=== PATIENT | female | born 1935 | race Caucasian/White ===

== ENCOUNTER 2016-11-13 14:01 | Inpatient (IN) | payer MEDICARE ==
--- NOTE | 2016-11-13 14:13 | Emergency Department Record ---
History of Present Illness - General Chief Complaint: Shortness of breath Stated Complaint: ELEVATED BP Time Seen by Provider: 11/13/16 14:12 Source: Patient, Family Mode of Arrival: Ambulatory Limitations: No limitations - History of Present Illness Initial Comments: The patient has had a cough and mild congestion for a few days and it has gotten worse today. Now she is having labored breathing and SOB with walking. The patient denies any CP, sputum production, fever, chills, or pleuritic pain. She did see her PCP today but was referred to the ER for further evaluation. MD Complaint: Cough, Shortness of breath Onset/Timin -: Days(s) Consistency: Constant Improves With: Nothing Worsens With: Exertion Known History Of: Other Associated Symptoms: Cough Treatments Prior to Arrival: None - Related Data Allergies Allergy/AdvReac Type Severity Reaction Status Date / Time lisinopril Allergy Unknown CONGESTION Unverified 04/17/16 14:00 Travel Screening - Travel/Exposure Within Last 30 Days Have you traveled within the last 30 days?: No Review of Systems Constitutional: Reports: Malaise. Denies: Chills, Fever Eyes: Denies: Eye discharge ENT: Reports: Congestion Respiratory: Reports: Cough, Dyspnea Cardiovascular: Denies: Chest pain Endocrine: Reports: Fatigue Gastrointestinal: Denies: Diarrhea, Vomiting Genitourinary: Denies: Dysuria Musculoskeletal: Denies: Back pain Skin: Denies: Bruising Past Medical History - SOCIAL HISTORY Smoking Status: Former smoker - RESPIRATORY Hx Respiratory Disorders: Yes Hx COPD: Yes Hx Pneumonia: Yes Hx Sleep Apnea: Yes Hx of CPAP: No - CARDIOVASCULAR Hx Cardio Disorders: Yes Hx Hypertension: Yes Comment:: hypercholesteremia, AAA - NEURO Hx Neuro Disorders: No - GI Hx GI Disorders: Yes Comment:: abdominal aneurysm - Hx Genitourinary Disorders: Yes Hx Bladder Problem: Yes (cancer) - ENDOCRINE Hx Endocrine Disorders: No Hx Diabetes: No Hx Thyroid Disease: No - MUSCULOSKELETAL Hx Musculoskeletal Disorders: Yes Hx Arthritis: Yes - PSYCH Hx Psych Problems: No - HEMATOLOGY/ONCOLOGY Hx Hematology/Oncology Disorders: Yes Hx Cancer: Yes (bladder 2009 approx) Hx Blood Transfusions: Yes Hx Blood Transfusion Reaction: No Family Medical History Any Significant Family History?: Yes Hx Cancer: Mother, Children, Brother/Sister Hx Resp Disorders: Children Physical Exam - General General Appearance: Alert, Oriented x3, Cooperative, No acute distress - Head Head exam: Atraumatic, Normocephalic, Normal inspection - Eye Eye exam: Normal appearance, PERRL - ENT Throat exam: Normal inspection. negative: Tonsillar erythema, Tonsillar exudate - Neck Neck exam: Normal inspection, Full ROM. negative: Tenderness - Respiratory Respiratory exam: Decreased breath sounds, Wheezes (at the bases.). negative: Normal lung sounds bilaterally - Cardiovascular Cardiovascular Exam: Regular rate, Normal rhythm, Normal heart sounds - GI/Abdominal GI/Abdominal exam: Soft, Normal bowel sounds. negative: Tenderness - Extremities Extremities exam: Normal inspection, Full ROM, Normal capillary refill. negative: Tenderness - Neurological Neurological exam: Alert, Normal gait. negative: Abnormal gait, Motor sensory deficit Course Vital Signs 11/13/16 14:03 Temperature 97.6 F Pulse Rate 74 Respiratory 20 Rate Blood Pressure 189/102 Pulse Ox 88 L - Reevaluation(s) Reevaluation #1: The patient is doing and feeling better. On exam her wheezing has improved but is still present. When her O2 is turned off her RA biox drops to 86%. On exam the lung aeration is much improved but she is still having the wheezing minimally but no labored breathing. I did discuss the case with Dr. Salcedo and did recommend hospital admission and she does accept the admission. 11/13/16 15:59 Medical Decision Making - Data Complexity MDM Data: Labs Ordered and/or Reviewed, X-Ray Ordered and/or Reviewed, EKG Ordered and/or Reviewed - Lab Data Result diagrams: 11/13/16 13:40 11/13/16 13:40 - EKG Data -: EKG Interpreted by Me EKG: No Acute Changes - Radiology Data Radiology results: Report reviewed (CXR: COPD, O/W no acute changes.) Disposition Disposition: Admit Clinical Impression: COPD exacerbation Disposition: Still a Patient at [facility] Decision to Admit: Admit from ER Decision to Admit Date: 11/13/16 Decision to Admit Time: 16:01 Accepting Physician: Denisse Time Discussed w/Accepting Physician: 16:01 Condition: (2) Stable Forms: Patient Portal Access Time of Disposition: 16:01
[2016-11-13] MEDS ORDERED: ALBUTEROL SULFATE (0.083%) 2.5 MG/3 ML NEB INH ONE (14:17)
[2016-11-13] MEDS ORDERED: IPRATROPIUM/ALBUTEROL (0.5MG/3MG) NEB INH ONE (14:17)
[2016-11-13] MEDS ORDERED: METHYLPREDNISOLONE PF 125MG/VIAL IVP ONE (14:17)
[2016-11-13 14:27] LABS: HEMATOCRIT 37.3 % (35.0-47.0); HEMOGLOBIN 12.8 gm/dl (11.6-16.0); MEAN CELL VOLUME 85.6 fl (81-97); MEAN CORPUSCULAR HEMOGLOBIN 29.4 pg (27-33); MEAN CORPUSCULAR HGB CONC 34.3 g/dl (32-36); MEAN PLATELET VOLUME 11.2 fl (7.4-10.4); PLATELET COUNT 152 K/uL (130-400); RED BLOOD COUNT 4.36 M/uL (3.80-5.40); RED CELL DISTRIBUTION WIDTH 14.7 % (11.5-14.5); WHITE BLOOD COUNT W/O DIFF 6.5 K/uL (4.2-12.2)
[2016-11-13 14:39] LABS: BLOOD UREA NITROGEN 12 mg/dL (7-17); CREATININE 0.9 mg/dL (0.52-1.04); EST GLOMERULAR FILTRATION RATE > 60 ml/min; GLUCOSE,RANDOM 100 mg/dL (70-110)
[2016-11-13 14:41] LABS: PLATELET ESTIMATE NORMAL (NORMAL)
[2016-11-13 14:51] LABS: TROPONIN I < 0.012 ng/mL (0.00-0.034)
[2016-11-13] MEDS ORDERED: LEVOFLOXACIN 500 MG TABLET PO ONE (15:58)
[2016-11-13] MEDS ORDERED: ACETAMINOPHEN 500 MG TABLET PO PRN (17:28)
[2016-11-13] MEDS: IPRATROPIUM/ALBUTEROL (0.5MG/3MG) NEB INH SCH ×2 (18:16→22:07)
[2016-11-13] MEDS: ASPIRIN 81 MG CHEWABLE TABLET PO SCH (18:42)
[2016-11-13] MEDS ORDERED: CALCIUM CARBONATE 500 MG TAB.CHEW PO PRN (23:00)
[2016-11-14] MEDS ORDERED: LEVOFLOXACIN 500 MG TABLET PO SCH (06:00)
[2016-11-14] MEDS: IPRATROPIUM/ALBUTEROL (0.5MG/3MG) NEB INH SCH ×5 (06:19→18:19)
[2016-11-14 06:22] LABS: GRAN % 78.1 % (47-80); HEMATOCRIT 34.7 % (35.0-47.0); LYMPH % 18.8 % (16-45); MEAN CELL VOLUME 84.8 fl (81-97); MEAN CORPUSCULAR HEMOGLOBIN 29.3 pg (27-33); MEAN CORPUSCULAR HGB CONC 34.6 g/dl (32-36); MEAN PLATELET VOLUME 11.5 fl (7.4-10.4); MONO % 3.1 % (0-9); PLATELET COUNT 132 K/uL (130-400); RED BLOOD COUNT 4.09 M/uL (3.80-5.40); RED CELL DISTRIBUTION WIDTH 14.3 % (11.5-14.5); WHITE BLOOD COUNT W/O DIFF 4.9 K/uL (4.2-12.2)
[2016-11-14 06:35] LABS: ALB/GLOB RATIO 1.3 (1.1-1.8); ALKALINE PHOSPHATASE 69 U/L (38-126); ALT/SGPT 18 U/L (9-52); AST/SGOT 19 U/L (14-36); BILIRUBIN,TOTAL 0.52 mg/dL (0.2-1.3); BLOOD UREA NITROGEN 17 mg/dL (7-17); CREATININE 0.9 mg/dL (0.52-1.04); EST GLOMERULAR FILTRATION RATE > 60 ml/min; GLUCOSE,RANDOM 125 mg/dL (70-110)
--- NOTE | 2016-11-14 09:13 | RADIOLOGY REPORT ---
EXAM: CHEST, TWO VIEWS HISTORY: PROGRESSIVE DIFFICULTY BREATHING, NONPRODUCTIVE COUGH AT NIGHT. TECHNIQUE: Two views of the chest were obtained. Comparison: Chest x-ray 04/07/16, chest CT 07/04/15. FINDINGS: Mild biapical pleural thickening as well as scattered ill defined nodular densities unchanged from the chest CT of 07/04/15. No dense infiltrate. The cardiomediastinal silhouette is not enlarged. The diaphragm is unremarkable. Osteopenia. IMPRESSION: HYPERINFLATED LUNGS. BIAPICAL SCARRING WITH SCATTERED SUBTLE NODULAR DENSITIES THROUGHOUT THE APICES UNCHANGED FROM 2015 LIKELY POST INFLAMMATORY. NO ACUTE INTRATHORACIC PROCESS. JOB NUMBER: [id number] MTDD
[2016-11-14] MEDS ORDERED: METHYLPREDNISOLONE PF 125MG/VIAL IVP SCH (10:00)
[2016-11-14] MEDS ORDERED: ATENOLOL 50 MG TABLET PO SCH (10:00)
[2016-11-14] MEDS ORDERED: SIMVASTATIN 10MG TABLET PO SCH (10:00)
--- NOTE | 2016-11-14 13:58 | History & Physical ---
History of Present Illness - Date of Service Date of Service for History & Physical: 11/14/16 - History of Present Illness Admitting Diagnosis: 1. Acute COPD Exacerbation. History of Present Illness: 81 yo F with past medical history of COPD presents with acute shortness of breath and difficulty in breathing. The patient has had a cough and mild congestion for a few days and it has gotten worse today. Now she is having labored breathing and SOB with walking. The patient denies any CP, sputum production, fever, chills, or pleuritic pain. She had come into the clinic to see her PCP today (myself) but was referred to the ER for further evaluation when resting biox was found to be in low 80s. She was admitted subsequently when her ambulatory biox was found to be in the low 80s. Travel Screening - Travel/Exposure Within Last 30 Days Have you traveled within the last 30 days?: No - Travel/Exposure Within Last Year Have you traveled outside the [place] in the last year?: No - Additonal Travel Details Have you been exposed to anyone with a communicable illness?: No Review of Systems Constitutional: Reports: Malaise. Denies: Chills, Fever Eyes: Denies: Eye discharge ENT: Reports: Congestion Respiratory: Reports: Cough, Dyspnea Cardiovascular: Denies: Chest pain Endocrine: Reports: Fatigue Gastrointestinal: Denies: Diarrhea, Vomiting Genitourinary: Denies: Dysuria Musculoskeletal: Denies: Back pain Skin: Denies: Bruising Past Medical History - SOCIAL HISTORY Smoking Status: Former smoker Alcohol Use: None Drug Use: None - RESPIRATORY Hx Respiratory Disorders: Yes Hx COPD: Yes Hx Pneumonia: Yes Hx Sleep Apnea: Yes Hx of CPAP: No - CARDIOVASCULAR Hx Cardio Disorders: Yes Hx Hypertension: Yes Comment:: hypercholesteremia, AAA - NEURO Hx Neuro Disorders: No Comment:: "memory issues" per daughter - GI Hx GI Disorders: Yes Hx Reflux: Yes Comment:: abdominal aneurysm - Hx Genitourinary Disorders: Yes Hx Bladder Problem: Yes (cancer) - ENDOCRINE Hx Endocrine Disorders: No Hx Diabetes: No Hx Thyroid Disease: No - MUSCULOSKELETAL Hx Musculoskeletal Disorders: Yes Hx Arthritis: Yes - PSYCH Hx Psych Problems: No - HEMATOLOGY/ONCOLOGY Hx Hematology/Oncology Disorders: Yes Hx Cancer: Yes (bladder 2009 approx) Hx Blood Transfusions: Yes Hx Blood Transfusion Reaction: No Family Medical History Any Significant Family History?: Yes Hx Cancer: Mother, Children, Brother/Sister Hx Resp Disorders: Children H&P Meds/Allergies - Allergies Allergies: Allergies Allergy/AdvReac Type Severity Reaction Status Date / Time lisinopril Allergy Unknown CONGESTION Unverified 04/17/16 14:00 - Active Medications Active Medications: Current Medications Acetaminophen (Tylenol 500mg Tab) 500 mg PO Q6H PRN PRN Reason: PAIN/TEMP Albuterol/Ipratropium (Duoneb) 3 ml INH RESP.Q4H.WA [facility] Last Admin: 11/14/16 13:30 Dose: 3 ml Aspirin (Aspirin Chewable) 81 mg PO QD [facility] Last Admin: 11/13/16 18:42 Dose: 81 mg Atenolol (Tenormin) 50 mg PO QAM [facility] Last Admin: 11/14/16 11:01 Dose: 50 mg Calcium Carbonate/Glycine (Tums) 500 mg PO Q4H PRN PRN Reason: INDIGESTION Levofloxacin (Levaquin Tab) 500 mg PO DAILYFLUOR [facility] Last Admin: 11/14/16 07:57 Dose: 500 mg Methylprednisolone Sodium Succinate (Solu-Medrol) 60 mg IVP DAILY [facility] Last Admin: 11/14/16 11:01 Dose: 60 mg Simvastatin (Zocor) 10 mg PO DAILY [facility] Last Admin: 11/14/16 12:59 Dose: Not Given Physical Exam - Vital Signs Vital Signs: Vital Signs - Last 24 Hrs Temp Pulse Pulse Pulse Resp BP BP 11/14/16 13:32 86 16 11/14/16 13:28 64 18 11/14/16 10:40 98.0 F 69 20 11/14/16 10:31 71 18 11/14/16 09:00 68 11/14/16 06:19 66 20 11/14/16 01:28 97.7 F 78 18 104/57 11/13/16 22:07 87 20 11/13/16 18:15 11/13/16 17:47 18 11/13/16 17:28 98.1 F 79 20 11/13/16 16:57 76 16 128/59 BP Pulse Ox 11/14/16 13:32 94 L 11/14/16 13:28 94 L 11/14/16 10:40 103/54 91 L 11/14/16 10:31 91 L 11/14/16 09:00 11/14/16 06:19 91 L 11/14/16 01:28 94 L 11/13/16 22:07 95 11/13/16 18:15 94 L 11/13/16 17:47 11/13/16 17:28 145/78 93 L 11/13/16 16:57 94 L - General General Appearance: Alert, Oriented x3, Cooperative, No acute distress Limitations: No limitations - Head Head exam: Atraumatic, Normocephalic, Normal inspection - Eye Eye exam: Normal appearance, PERRL - ENT Throat exam: Normal inspection. negative: Tonsillar erythema, Tonsillar exudate - Neck Neck exam: Normal inspection, Full ROM. negative: Tenderness - Respiratory Respiratory exam: Decreased breath sounds, Wheezes (at the bases.). negative: Normal lung sounds bilaterally - Cardiovascular Cardiovascular Exam: Regular rate, Normal rhythm, Normal heart sounds, Systolic murmur - GI/Abdominal GI/Abdominal exam: Soft, Normal bowel sounds. negative: Tenderness - Extremities Extremities exam: Normal inspection, Full ROM, Normal capillary refill. negative: Tenderness - Neurological Neurological exam: Alert, Normal gait. negative: Abnormal gait, Motor sensory deficit Results - Labs Result Diagrams: 11/14/16 06:15 11/14/16 06:15 Labs Last 24 Hours: Laboratory Results - last 24 hr 11/14/16 11/14/16 06:15 06:15 WBC 4.9 RBC 4.09 Hgb 12.0 Hct 34.7 L MCV 84.8 MCH 29.3 MCHC 34.6 RDW 14.3 Plt Count 132 MPV 11.5 H Gran % 78.1 Lymphocytes % 18.8 Monocytes % 3.1 Eosinophils % 0.0 Basophils % 0.0 Sodium 136 Potassium 4.8 Chloride 98 Carbon Dioxide 27.0 Anion Gap 11.0 BUN 17 Creatinine 0.9 Estimated GFR > 60 Random Glucose 125 H Calcium 9.6 Total Bilirubin 0.52 AST 19 ALT 18 Alkaline Phosphatase 69 Total Protein 7.0 Albumin 4.0 Globulin 3.0 Albumin/Globulin Ratio 1.3 VTE H&P Assessment - Risk for VTE Risk for VTE: Yes Risk Level: Moderate Risk Assessment Date: 11/14/16 Risk Assessment Time: 14:02 VTE Orders Placed or Will Be Placed: Yes VTE Reason for No Prophylaxis: Not Indicated Plan - Inpatient Certification Inpatient Certification: Admit to inpatient care: Based on my medical assessment, after consideration of patient's risk factors (age, co-morbidities and patient presenting symptoms and acuity), I expect that this patient will remain in the hospital greater than or equal to two midnights and that the services needed warrant inpatient care because: Patient Risk Factors: [] Estimated length of stay: [] The patient may reasonably be expected to be discharged or transferred to a hospital within 96 hours after admission to [facility]. Services needed: [] Post hospital care (if known): [] I certify that my determination is in accordance with my understanding of Medicare requirements for reasonable and necessary inpatient services. - Detailed Diagnosis and Plan (1) COPD exacerbation Current Visit: Yes Status: Acute Base Code: J44.1 - CHRONIC OBSTRUCTIVE PULMONARY DISEASE W (ACUTE) EXACERBATION Comment: 11/13/16: will initiate COPD pathway with Levofloxacin 500mg PO QD for 5days and Prednisone 60mg PO daily, breathing treatments. (2) DNR (do not resuscitate) Current Visit: No Status: Acute Base Code: Z66 - DO NOT RESUSCITATE Comment: 11/13/16- Patient remains DNR status (3) Hypoxia Current Visit: No Status: Acute Base Code: R09.02 - HYPOXEMIA Comment: 11/13/15- -continue oxygen via [place] to keep sats > 92% -Home oxygen qualifier per RT ordered
[2016-11-14] MEDS: ASPIRIN 81 MG CHEWABLE TABLET PO SCH (17:17)
--- NOTE | 2016-11-14 17:56 | Discharge Summary ---
Providers Discharge Summary Date: 11/14/16 Date of admission: 11/13/16 16:54 Expected Date of Discharge: 11/14/16 Attending physician: RUBY AMBROSE Primary care physician: RUBY AMBROSE Physical Exam - Vital Signs Vital Signs: Vital Signs - Last 24 Hrs Temp Pulse Pulse Pulse Resp BP BP 11/14/16 13:32 86 16 11/14/16 13:28 64 18 11/14/16 10:40 98.0 F 69 20 103/54 11/14/16 10:31 71 18 11/14/16 09:00 68 11/14/16 06:19 66 20 11/14/16 01:28 97.7 F 78 18 104/57 11/13/16 22:07 87 20 11/13/16 18:15 Pulse Ox 11/14/16 13:32 94 L 11/14/16 13:28 94 L 11/14/16 10:40 91 L 11/14/16 10:31 91 L 11/14/16 09:00 11/14/16 06:19 91 L 11/14/16 01:28 94 L 11/13/16 22:07 95 11/13/16 18:15 94 L - General General Appearance: Alert, Oriented x3, Cooperative, No acute distress Limitations: No limitations - Head Head exam: Atraumatic, Normocephalic, Normal inspection - Eye Eye exam: Normal appearance, PERRL - ENT Throat exam: Normal inspection. negative: Tonsillar erythema, Tonsillar exudate - Neck Neck exam: Normal inspection, Full ROM. negative: Tenderness - Respiratory Respiratory exam: negative: Normal lung sounds bilaterally - Cardiovascular Cardiovascular Exam: Regular rate, Normal rhythm, Normal heart sounds, Systolic murmur - GI/Abdominal GI/Abdominal exam: Soft, Normal bowel sounds. negative: Tenderness - Extremities Extremities exam: Normal inspection, Full ROM, Normal capillary refill. negative: Tenderness - Neurological Neurological exam: Alert, Normal gait. negative: Abnormal gait, Motor sensory deficit Hospitalization - Hospitalization Admission Diagnosis: 1. Acute COPD Exacerbation. - Problem List/Discharge Diagnosis (1) COPD exacerbation Current Visit: Yes Status: Acute Base Code: J44.1 - CHRONIC OBSTRUCTIVE PULMONARY DISEASE W (ACUTE) EXACERBATION Comment: 11/14/16: patient significantly improved with breathing. Did not qualify for home oxygen. will contiue COPD pathway with Levofloxacin 500mg PO QD for 5days and Prednisone 60mg PO daily, breathing treatments at home. Follow up with PCP office in a week (2) DNR (do not resuscitate) Current Visit: No Status: Acute Base Code: Z66 - DO NOT RESUSCITATE Comment: 11/14/16- Patient remains DNR status (3) Hypoxia Current Visit: No Status: Acute Base Code: R09.02 - HYPOXEMIA Comment: 11/13/15- -continue oxygen via NC to keep sats > 92% -Home oxygen qualifier per RT ordered - Hospitalization Course Disposition: Home Health Service Abnormal Labs: Abnormal Lab Results 11/14/16 11/14/16 Range/Units 06:15 06:15 Hct 34.7 L (35.0-47.0) % MPV 11.5 H (7.4-10.4) fl Random Glucose 125 H (70-110) mg/dL Condition at Discharge: (2) Stable Discharge Medications - Discharge Medications Prescriptions: Fluticasone/Salmeterol 250/50 [Advair 250/50] 1 each IH Q12H #1 disk Levofloxacin [Levaquin] 500 mg PO DAILYFLUOR #4 tablet Prednisone [Prednisone 20Mg] 40 mg PO DAILY #14 tab Albuterol Sulfate [Proair Hfa] 1 - 2 puff IH .EVERY 4-6 HOURS PRN #1 inhaler PRN Reason: Difficulty In Breathing Tiotropium [place] [Spiriva] 1 cap IH DAILY #1 cap.w.dev Home Medications: Ambulatory Orders Albuterol Sulfate [Proair Hfa] 1 - 2 puff IH .EVERY 4-6 HOURS PRN #1 inhaler [Last Taken Unknown] Calcium Carbonate [Tums] 500 mg PO Q4H PRN #0 tab.chew 11/14/16 [Last Taken Unknown] Fluticasone/Salmeterol 250/50 [Advair 250/50] 1 each IH Q12H #1 disk 11/14/16 [ Last Taken Unknown] Levofloxacin [Levaquin] 500 mg PO DAILYFLUOR #4 tablet 11/14/16 [Last Taken Unknown] Prednisone [Prednisone 20Mg] 40 mg PO DAILY #14 tab 11/14/16 [Last Taken Unknown ] Tiotropium [place] [Spiriva] 1 cap IH DAILY #1 cap.w.dev 11/14/16 [Last Taken Unknown] Discharge Plan - Discharge Instructions Activity at Discharge: Increase Activity as Tolerated Diet at Discharge: Regular Diet
[2016-11-14] MEDS ORDERED: ATORVASTATIN 20 MG TABLET PO SCH (22:00)
== END 2016-11-14 18:45 | disposition home health service (06) | DRG 192 ==
LOC: ER 14:01 → MEDSURG 16:54
PROVIDERS: ADMIT Family Medicine; ATTEND Family Medicine
DX: J44.1 Chronic obstructive pulmonary disease with (acute) exacerbation (principal); J20.9 Acute bronchitis, unspecified; J44.0 Chronic obstructive pulmonary disease with (acute) lower respiratory infection; Z66 Do not resuscitate; R09.02 Hypoxemia
CPT/HCPCS: 71020; 80048; 80053; 83880; 84484; 85025; 85027; 93005; 93010; 94620; 94640; 94760; 94761; 96374; 99223; 99285; J2930; J7613

== ENCOUNTER 2017-01-01 15:10 | Inpatient (IN) | payer MEDICARE ==
[2017-01-01] MEDS ORDERED: IPRATROPIUM/ALBUTEROL (0.5MG/3MG) NEB INH ONE ×2 (15:30)
--- NOTE | 2017-01-01 15:36 | Emergency Department Record ---
History of Present Illness - General Chief Complaint: Shortness of breath Stated Complaint: LIZ Time Seen by Provider: 01/01/17 15:35 Source: Patient Mode of Arrival: Ambulatory Limitations: No limitations - History of Present Illness Initial Comments: The patient is here due to a 4 day hx of worsening coughing and LIZ. The patient has a hx of COPD and was admitted to the hospital 2 months ago for the same issues. She was in the [facility] 3 days ago for the same things and had a neg CXR. Now her symptoms have worsened. She denies any fever or CP. MD Complaint: Cough, Shortness of breath Onset/Timin -: Days(s) Consistency: Constant Improves With: Nothing Worsens With: Nothing Known History Of: COPD Associated Symptoms: Denies other symptoms Treatments Prior to Arrival: None - Related Data Home Oxygen Therapy: No Previous Rx's Medication Instructions Recorded Albuterol Sulfate [Proair Hfa] 1 - 2 puff IH .EVERY 4-6 HOURS PRN 11/14/16 #1 inhaler Calcium Carbonate [Tums] 500 mg PO Q4H PRN #0 tab.chew 11/14/16 Allergies Allergy/AdvReac Type Severity Reaction Status Date / Time lisinopril Allergy Unknown CONGESTION Unverified 12/29/16 13:55 Travel Screening - Travel/Exposure Within Last 30 Days Have you traveled within the last 30 days?: No - Travel/Exposure Within Last Year Have you traveled outside the [place] in the last year?: No - Additonal Travel Details Have you been exposed to anyone with a communicable illness?: No Review of Systems Constitutional: Denies: Chills, Fever Eyes: Denies: Eye discharge ENT: Reports: Congestion Respiratory: Reports: Cough, Dyspnea Cardiovascular: Denies: Arrhythmia, Chest pain Endocrine: Reports: Fatigue Gastrointestinal: Denies: Abdominal pain Genitourinary: Denies: Dysuria Musculoskeletal: Denies: Back pain Skin: Denies: Bruising Past Medical History - SOCIAL HISTORY Smoking Status: Former smoker Alcohol Use: None Drug Use: None - RESPIRATORY Hx Respiratory Disorders: Yes Hx COPD: Yes Hx Pneumonia: Yes Hx Sleep Apnea: Yes Hx of CPAP: No - CARDIOVASCULAR Hx Cardio Disorders: Yes Hx Hypertension: Yes Comment:: hypercholesteremia, AAA - NEURO Hx Neuro Disorders: No Comment:: "memory issues" per daughter - GI Hx GI Disorders: Yes Hx Reflux: Yes Comment:: abdominal aneurysm - Hx Genitourinary Disorders: Yes Hx Bladder Problem: Yes (cancer) - ENDOCRINE Hx Endocrine Disorders: No Hx Diabetes: No Hx Thyroid Disease: No - MUSCULOSKELETAL Hx Musculoskeletal Disorders: Yes Hx Arthritis: Yes - PSYCH Hx Psych Problems: No - HEMATOLOGY/ONCOLOGY Hx Hematology/Oncology Disorders: Yes Hx Cancer: Yes (bladder 2009 approx) Hx Blood Transfusions: Yes Hx Blood Transfusion Reaction: No Family Medical History Any Significant Family History?: Yes Hx Cancer: Mother, Children, Brother/Sister Hx Resp Disorders: Children Physical Exam - General General Appearance: Alert, Oriented x3, Cooperative, No acute distress - Head Head exam: Atraumatic, Normocephalic, Normal inspection - Eye Eye exam: Normal appearance, PERRL - ENT Throat exam: Normal inspection. negative: Tonsillar erythema, Tonsillar exudate - Neck Neck exam: Normal inspection, Full ROM. negative: Tenderness - Respiratory Respiratory exam: Decreased breath sounds, Wheezes (at the bases.). negative: Normal lung sounds bilaterally, Respiratory distress - Cardiovascular Cardiovascular Exam: Regular rate, Normal rhythm, Normal heart sounds - GI/Abdominal GI/Abdominal exam: Soft, Normal bowel sounds. negative: Tenderness - Extremities Extremities exam: Normal inspection, Full ROM, Normal capillary refill. negative: Tenderness - Neurological Neurological exam: Normal gait. negative: Abnormal gait - Psychiatric Psychiatric exam: negative: Anxious, Depressed Course Vital Signs 01/01/17 01/01/17 15:31 15:32 Temperature 98.3 F Pulse Rate 80 Pulse Rate [ 82 [employer] ] Respiratory 26 H 26 H Rate Blood Pressure 153/74 [Left Arm] Pulse Ox 88 L 95 - Reevaluation(s) Reevaluation #1: The patient is better but still is wheezing minimally. I did discuss with her the xray and lab tests are WNL. Due to the fact she is still wheezing I did recommend hospital admission and she does agree. I also discussed the case with Luz Marina JONES) and she accepts the admission. 01/01/17 16:43 Medical Decision Making - Data Complexity MDM Data: Labs Ordered and/or Reviewed, X-Ray Ordered and/or Reviewed - Lab Data Result diagrams: 01/01/17 16:05 01/01/17 16:05 - EKG Data -: EKG Interpreted by Me EKG: No Acute Changes, Normal EKG, Unchanged From Previous - Radiology Data Radiology results: Report reviewed (CXR: COPD) Disposition Disposition: Admit Clinical Impression: COPD exacerbation Decision to Admit: Admit from ER Decision to Admit Date: 01/01/17 Decision to Admit Time: 16:46 Accepting Physician: Denisse Time Discussed w/Accepting Physician: 16:46 Forms: Patient Portal Access Time of Disposition: 16:46
[2017-01-01] MEDS ORDERED: METHYLPREDNISOLONE PF 125MG/VIAL IVP ONE (15:52)
[2017-01-01 16:12] LABS: BASO % 0.3 % (0-6); EOS % 5.6 % (0-6); GRAN % 70.8 % (47-80); HEMATOCRIT 36.1 % (35.0-47.0); HEMOGLOBIN 12.2 gm/dl (11.6-16.0); LYMPH % 16.5 % (16-45); MEAN CELL VOLUME 85.3 fl (81-97); MEAN CORPUSCULAR HEMOGLOBIN 28.8 pg (27-33); MEAN CORPUSCULAR HGB CONC 33.8 g/dl (32-36); MEAN PLATELET VOLUME 10.1 fl (7.4-10.4); MONO % 6.8 % (0-9); PLATELET COUNT 126 K/uL (130-400); RED BLOOD COUNT 4.23 M/uL (3.80-5.40); WHITE BLOOD COUNT W/O DIFF 6.9 K/uL (4.2-12.2)
[2017-01-01 16:23] LABS: ANION GAP 8.5 (7-16); BLOOD UREA NITROGEN 12 mg/dL (7-17); CARBON DIOXIDE 29.5 mmol/L (22-30); CREATININE 0.9 mg/dL (0.52-1.04); EST GLOMERULAR FILTRATION RATE > 60 ml/min; GLUCOSE,RANDOM 119 mg/dL (70-110)
[2017-01-01 16:31] LABS: CREATINE PHOSPHOKINASE < 20 U/L (30-135)
[2017-01-01 16:35] LABS: CKMB 0.3 ug/L (0-6)
[2017-01-01 16:36] LABS: TROPONIN I < 0.012 ng/mL (0.00-0.034)
[2017-01-01] MEDS ORDERED: LEVOFLOXACIN 500MG IVPB 500 MG in DEXTROSE 1 BAG IVPB ONE (18:17)
[2017-01-01] MEDS ORDERED: ASPIRIN 81 MG CHEWABLE TABLET PO SCH (18:17)
[2017-01-01] MEDS: IPRATROPIUM/ALBUTEROL (0.5MG/3MG) NEB INH SCH ×2 (20:01→22:04)
[2017-01-01] MEDS: SIMVASTATIN 10MG TABLET PO SCH (21:39)
[2017-01-02] MEDS: IPRATROPIUM/ALBUTEROL (0.5MG/3MG) NEB INH SCH ×5 (05:56→21:51)
[2017-01-02 06:36] LABS: HEMATOCRIT 36.2 % (35.0-47.0); HEMOGLOBIN 12.3 gm/dl (11.6-16.0); MEAN CELL VOLUME 84.6 fl (81-97); MEAN CORPUSCULAR HEMOGLOBIN 28.7 pg (27-33); MEAN PLATELET VOLUME 11.1 fl (7.4-10.4); PLATELET COUNT 125 K/uL (130-400); RED BLOOD COUNT 4.28 M/uL (3.80-5.40); RED CELL DISTRIBUTION WIDTH 13.8 % (11.5-14.5); WHITE BLOOD COUNT W/O DIFF 3.7 K/uL (4.2-12.2)
[2017-01-02 06:50] LABS: PLATELET ESTIMATE NORMAL (NORMAL)
[2017-01-02 06:55] LABS: ALB/GLOB RATIO 1.1 (1.1-1.8); ALBUMIN 3.6 gm/dL (3.5-5.0); ALKALINE PHOSPHATASE 81 U/L (38-126); ALT/SGPT 23 U/L (9-52); ANION GAP 8.7 (7-16); AST/SGOT 16 U/L (14-36); BILIRUBIN,TOTAL 0.63 mg/dL (0.2-1.3); BLOOD UREA NITROGEN 20 mg/dL (7-17); CARBON DIOXIDE 26.3 mmol/L (22-30); CREATININE 0.9 mg/dL (0.52-1.04); EST GLOMERULAR FILTRATION RATE > 60 ml/min; GLUCOSE,RANDOM 151 mg/dL (70-110); TOTAL PROTEIN 6.8 gm/dL (6.3-8.2)
--- NOTE | 2017-01-02 07:43 | RADIOLOGY REPORT ---
EXAM: CHEST, TWO VIEWS HISTORY: DIFFICULTY BREATHING. TECHNIQUE: Two views of the chest were performed. Comparison: 12/29/16. FINDINGS: The heart size is normal. The lungs are hyperinflated. Minimal biapical pleural thickening. No acute type infiltrate or pleural effusion. IMPRESSION: HYPERINFLATED LUNGS. BIAPICAL PLEURAL THICKENING. NO ACUTE TYPE INFILTRATE OR PLEURAL EFFUSION. JOB NUMBER: [id number] MTDD
[2017-01-02] MEDS ORDERED: PRAVASTATIN SODIUM 20 MG PO SCH (10:00)
--- NOTE | 2017-01-02 10:49 | History & Physical ---
History of Present Illness - Date of Service Date of Service for History & Physical: 01/02/17 - History of Present Illness Admitting Diagnosis: 1. COPD Exacerbation with Hypoxia. History of Present Illness: 81yo female with CC of shortness of breath. She has a history of COPD, Htn, TISHA , HLD, AAA, GERD, bladder cancer and arthritis. Patient presented to the ED with shortness of breath progressing over the past 2 weeks. Daughter noted her oxygen saturation was low running in the 80's and decided to bring her in to the ED. While in the ED, patient had O2 saturation of 88% on room air. CXR showed hyperinflation but was negative for infiltrate or acute process. Patient's o2 improved with supplemental O2 at 2L and duoneb breathing treatments. She was started on levaquin and steroids for COPD exacerbation and admitted. 01/02/17- Patient states she is feeling better today. shortness of breath has improved but still feeing more fatigued than usual. She has had several copd exacerbations this year already. She is currently just using her nebulizer at home for her COPD. She had previously qualified for home oxygen after a COPD exacerbation but improved to the point of no longer needing it. 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 PCP: [facility] Travel Screening - Travel/Exposure Within Last 30 Days Have you traveled within the last 30 days?: No - Travel/Exposure Within Last Year Have you traveled outside the [place] in the last year?: No - Additonal Travel Details Have you been exposed to anyone with a communicable illness?: Yes Exposure Details:: flu - Travel Symptoms Symptom Screening: Joint & Muscle Aches, Weakness, Fatigue, Lack of Appetite Review of Systems Constitutional: Denies: Chills, Fever Eyes: Denies: Eye discharge ENT: Reports: Congestion Respiratory: Reports: Cough, Dyspnea Cardiovascular: Denies: Arrhythmia, Chest pain Endocrine: Reports: Fatigue Gastrointestinal: Denies: Abdominal pain Genitourinary: Denies: Dysuria Musculoskeletal: Denies: Back pain Skin: Denies: Bruising Past Medical History - SOCIAL HISTORY Smoking Status: Former smoker Alcohol Use: None Drug Use: None - RESPIRATORY Hx Respiratory Disorders: Yes Hx COPD: Yes Hx Pneumonia: Yes Hx Sleep Apnea: Yes Hx of CPAP: No - CARDIOVASCULAR Hx Cardio Disorders: Yes Hx Hypertension: Yes Comment:: hypercholesteremia, AAA - NEURO Hx Neuro Disorders: No Comment:: "memory issues" per daughter - GI Hx GI Disorders: Yes Hx Reflux: Yes Comment:: abdominal aneurysm - Hx Genitourinary Disorders: Yes Hx Bladder Problem: Yes (cancer) - ENDOCRINE Hx Endocrine Disorders: No Hx Diabetes: No Hx Thyroid Disease: No - MUSCULOSKELETAL Hx Musculoskeletal Disorders: Yes Hx Arthritis: Yes - PSYCH Hx Psych Problems: No - HEMATOLOGY/ONCOLOGY Hx Hematology/Oncology Disorders: Yes Hx Cancer: Yes (bladder 2010 approx) Hx Blood Transfusions: Yes Hx Blood Transfusion Reaction: No Family Medical History Any Significant Family History?: Yes Hx Cancer: Mother, Children, Brother/Sister Hx Resp Disorders: Children H&P Meds/Allergies - Allergies Allergies: Allergies Allergy/AdvReac Type Severity Reaction Status Date / Time lisinopril Allergy Unknown CONGESTION Unverified 12/29/16 13:55 - Home Medications Previous Rx's Medication Instructions Recorded Albuterol Sulfate [Proair Hfa] 1 - 2 puff IH .EVERY 4-6 HOURS PRN 11/14/16 #1 inhaler Calcium Carbonate [Tums] 500 mg PO Q4H PRN #0 tab.chew 11/14/16 - Active Medications Active Medications: Current Medications Albuterol/Ipratropium (Duoneb) 3 ml INH RESP.Q4H.[facility] Last Admin: 01/02/17 05:56 Dose: 3 ml Aspirin (Aspirin Chewable) 81 mg PO DAILY GABE Atenolol (Tenormin) 50 mg PO QAM [facility] Methylprednisolone Sodium Succinate (Solu-Medrol) 60 mg IVP DAILY [facility] Simvastatin (Zocor) 10 mg PO QHS [facility] Last Admin: 01/01/17 21:39 Dose: 10 mg Physical Exam - Vital Signs Vital Signs: Vital Signs - Last 24 Hrs Temp Pulse Pulse Pulse Resp BP BP 01/02/17 08:15 98.4 F 67 16 01/02/17 08:14 84 20 01/02/17 05:56 65 20 01/02/17 05:00 97.9 F 70 22 01/01/17 23:00 97.5 F L 67 24 01/01/17 21:00 75 74 20 01/01/17 20:01 77 20 01/01/17 18:54 74 14 01/01/17 18:30 97.7 F 74 14 119/64 01/01/17 18:22 73 34 H 113/65 BP Pulse Ox 01/02/17 08:15 96/50 95 01/02/17 08:14 01/02/17 05:56 97 01/02/17 05:00 156/80 97 01/01/17 23:00 96/44 98 01/01/17 21:00 01/01/17 20:01 95 01/01/17 18:54 01/01/17 18:30 92 L 01/01/17 18:22 95 - General General Appearance: Alert, Oriented x3, Cooperative, No acute distress Limitations: No limitations - Head Head exam: Atraumatic, Normocephalic, Normal inspection - Eye Eye exam: Normal appearance, PERRL - ENT Throat exam: Normal inspection. negative: Tonsillar erythema, Tonsillar exudate - Neck Neck exam: Normal inspection, Full ROM. negative: Tenderness - Respiratory Respiratory exam: Decreased breath sounds, Wheezes (at the bases.). negative: Normal lung sounds bilaterally, Respiratory distress - Cardiovascular Cardiovascular Exam: Regular rate, Normal rhythm, Normal heart sounds - GI/Abdominal GI/Abdominal exam: Soft, Normal bowel sounds. negative: Tenderness - Extremities Extremities exam: Normal inspection, Full ROM, Normal capillary refill. negative: Tenderness - Neurological Neurological exam: Normal gait. negative: Abnormal gait - Psychiatric Psychiatric exam: negative: Anxious, Depressed Results - Labs Result Diagrams: 01/02/17 06:20 01/02/17 06:20 Labs Last 24 Hours: Laboratory Results - last 24 hr 01/02/17 01/02/17 06:20 06:20 WBC 3.7 L RBC 4.28 Hgb 12.3 Hct 36.2 MCV 84.6 MCH 28.7 MCHC 34.0 RDW 13.8 Plt Count 125 L MPV 11.1 H Neutrophils % 90.0 H Band Neutrophils % 1.0 Lymphocytes % 7.0 L Monocytes % 2.0 Eosinophils % Not Reportable Basophils % Not Reportable Platelet Estimate Normal RBC Morphology Normal Sodium 132 L Potassium 4.4 Chloride 97 L Carbon Dioxide 26.3 Anion Gap 8.7 BUN 20 H Creatinine 0.9 Estimated GFR > 60 Random Glucose 151 H Calcium 8.9 Total Bilirubin 0.63 AST 16 ALT 23 Alkaline Phosphatase 81 Total Protein 6.8 Albumin 3.6 Globulin 3.2 Albumin/Globulin Ratio 1.1 - Imaging and Cardiology Chest x-ray Status: Report reviewed (negative) VTE H&P Assessment - Risk for VTE Risk for VTE: Yes Risk Level: High Risk Assessment Date: 01/02/17 Risk Assessment Time: 13:49 VTE Orders Placed or Will Be Placed: Yes Plan - Inpatient Certification Inpatient Certification: 01/02/17 13:49 risk factors: age, COPD exacerbation, hypoxia estimated length of stay: 48-72H services needed: IV abx, IV steroids, respiratory therapy, supplemental oxygen - Detailed Diagnosis and Plan (1) COPD exacerbation Current Visit: Yes Status: Acute Base Code: J44.1 - CHRONIC OBSTRUCTIVE PULMONARY DISEASE W (ACUTE) EXACERBATION Comment: 01/02/17- Improving. CXR negative for infiltrate. WBC count normal and patient is afebrile. Will continue COPD pathway -levaquin 500mg IV daily -solumedrol 60mg IV daily -continue duoneb breathing treatments q4H prn per respiratory therapy -continue supplemental O2 via NC at 2L to keep sats >92% -will write script for respimat (LAMA/LABA) to see if this is covered by insurance -continue vitals q8H -repeat labs qam (2) Hypoxia Current Visit: No Status: Acute Base Code: R09.02 - HYPOXEMIA Comment: 01/02/17- suspect 2/2 COPD exacerbation -continue oxygen via NC to keep sats > 92% -Home oxygen qualifier per RT ordered. will do closer to discharge (3) DNR (do not resuscitate) Current Visit: No Status: Acute Base Code: Z66 - DO NOT RESUSCITATE Comment: 01/02/17- Patient remains DNR status (4) DVT prophylaxis Current Visit: No Status: Acute Base Code: [id number] - Comment: 01/02/17: patient considered high risk with age and restricted mobility -lovenox 40mg sq daily for prophylaxis
[2017-01-02] MEDS: ASPIRIN 81 MG CHEWABLE TABLET PO SCH (10:52)
[2017-01-02] MEDS: ATENOLOL 50 MG TABLET PO SCH (10:52)
[2017-01-02] MEDS: METHYLPREDNISOLONE PF 125MG/VIAL IVP SCH (10:53)
[2017-01-02] MEDS ORDERED: LEVOFLOXACIN 500MG IVPB 100 ML IVPB SCH (18:30)
[2017-01-02] MEDS: SIMVASTATIN 10MG TABLET PO SCH (21:53)
[2017-01-02] MEDS: ENOXAPARIN 40 MG/0.4 ML SYR SQ SCH (21:53)
[2017-01-03 06:25] LABS: HEMATOCRIT 30.7 % (35.0-47.0); HEMOGLOBIN 10.2 gm/dl (11.6-16.0); MEAN CELL VOLUME 84.8 fl (81-97); MEAN CORPUSCULAR HGB CONC 33.2 g/dl (32-36); MEAN PLATELET VOLUME 10.8 fl (7.4-10.4); PLATELET COUNT 132 K/uL (130-400); RED BLOOD COUNT 3.62 M/uL (3.80-5.40); RED CELL DISTRIBUTION WIDTH 13.6 % (11.5-14.5); WHITE BLOOD COUNT W/O DIFF 7.2 K/uL (4.2-12.2)
[2017-01-03 06:34] LABS: MEAN CORPUSCULAR HEMOGLOBIN 28.1 pg (27-33)
[2017-01-03 06:36] LABS: ALB/GLOB RATIO 1.1 (1.1-1.8); ALBUMIN 3.1 gm/dL (3.5-5.0); ANION GAP 5.9 (7-16); BILIRUBIN,TOTAL 0.26 mg/dL (0.2-1.3); CARBON DIOXIDE 28.1 mmol/L (22-30); TOTAL PROTEIN 5.9 gm/dL (6.3-8.2)
[2017-01-03] MEDS: IPRATROPIUM/ALBUTEROL (0.5MG/3MG) NEB INH SCH ×3 (06:53→15:00)
[2017-01-03] MEDS ORDERED: 0.9 % SODIUM CHLORIDE 1000ML 1,000 ML IV PRN (09:10)
[2017-01-03] MEDS: ASPIRIN 81 MG CHEWABLE TABLET PO SCH (09:42)
[2017-01-03] MEDS: METHYLPREDNISOLONE PF 125MG/VIAL IVP SCH (09:43)
[2017-01-03] MEDS: ENOXAPARIN 40 MG/0.4 ML SYR SQ SCH (09:48)
[2017-01-03] MEDS: ATENOLOL 50 MG TABLET PO SCH (09:49)
[2017-01-03] MEDS ORDERED: LEVOFLOXACIN 500 MG TABLET PO ONE (17:22)
--- NOTE | 2017-01-03 17:29 | Discharge Summary ---
Providers Discharge Summary Date: 01/03/17 Date of admission: 01/02/17 12:06 Expected Date of Discharge: 01/03/17 Attending physician: RUBY AMBROSE Primary care physician: RUBY AMBROSE Physical Exam - Vital Signs Vital Signs: Vital Signs - Last 24 Hrs Temp Pulse Pulse Pulse Resp BP Pulse Ox 01/03/17 13:00 97.4 F L 91 H 18 149/66 95 01/03/17 09:00 86 91 H 18 01/03/17 08:00 97.4 F L 86 18 97/50 91 L 01/03/17 06:56 92 H 18 96 01/03/17 06:50 91 H 18 96 01/02/17 21:00 84 105 H 18 01/02/17 20:15 97.6 F 105 H 18 111/64 93 L - General General Appearance: Alert, Oriented x3, Cooperative, No acute distress Limitations: No limitations - Head Head exam: Atraumatic, Normocephalic, Normal inspection - Eye Eye exam: Normal appearance, PERRL - ENT Throat exam: Normal inspection. negative: Tonsillar erythema, Tonsillar exudate - Neck Neck exam: Normal inspection, Full ROM. negative: Tenderness - Respiratory Respiratory exam: Decreased breath sounds. negative: Normal lung sounds bilaterally, Respiratory distress, Wheezes - Cardiovascular Cardiovascular Exam: Regular rate, Normal rhythm, Normal heart sounds - GI/Abdominal GI/Abdominal exam: Soft, Normal bowel sounds. negative: Tenderness - Extremities Extremities exam: Normal inspection, Full ROM, Normal capillary refill. negative: Tenderness - Neurological Neurological exam: Normal gait. negative: Abnormal gait - Psychiatric Psychiatric exam: negative: Anxious, Depressed Hospitalization - Hospitalization Admission Diagnosis: 1. COPD Exacerbation with Hypoxia. - Problem List/Discharge Diagnosis (1) COPD exacerbation Current Visit: Yes Status: Acute Base Code: J44.1 - CHRONIC OBSTRUCTIVE PULMONARY DISEASE W (ACUTE) EXACERBATION Comment: 01/03/17- Continues to improve. Patient states she has not felt short of breath sincce having the supplemental oxygen and duoneb treatments q4H. Not having increased cough and no sputum production. CXR negative for infiltrate. WBC count normal and patient is afebrile. Patient very adamant about going home today. -continue levaquin 500mg po daily for 5 day course. script sent to [facility] -transition to prednisone 40mg daily starting tomorrow. script sent to pharmacy -continue duoneb breathing treatments q4H if stiolto respimat cannot be filled. Sent in script for duoneb solution -script for new nebulizer (current one is >5 years old) given. Patient received new nebulizer prior to discharge -continue supplemental O2 via NC at 2L at all times. Patient had home oxygen qualifier per respiratory therapy and her oxygen saturation was <88% with rest and activity and did improve to 94% with supplemental oxygen at 2L. -Follow up in [facility] in the next 7-10 days. Will have market director contact patient on Thursday to schedule. -Will plan to order new set of PFT's and place pulmonology referral at that visit. (2) Hypoxia Current Visit: No Status: Acute Base Code: R09.02 - HYPOXEMIA Comment: 01/03/17- Improved. suspect 2/2 COPD exacerbation -continue supplemental O2 via NC at 2L at all times. Patient had home oxygen qualifier per respiratory therapy and her oxygen saturation was <88% with rest and activity and did improve to 94% with supplemental oxygen at 2L. (3) DNR (do not resuscitate) Current Visit: No Status: Acute Base Code: Z66 - DO NOT RESUSCITATE Comment: 01/03/17- Patient remains DNR status (4) DVT prophylaxis Current Visit: No Status: Acute Base Code: [id number] - Comment: 01/03/17: patient considered high risk with age and restricted mobility -lovenox 40mg sq daily for prophylaxis was given - Hospitalization Course Disposition: Home, Self-Care Hospital Course: 81yo female with CC of shortness of breath. She has a history of COPD, Htn, TISHA , HLD, AAA, GERD, bladder cancer and arthritis. Patient presented to the ED with shortness of breath progressing over the past 2 weeks. Daughter noted her oxygen saturation was low running in the 80's and decided to bring her in to the ED. While in the ED, patient had O2 saturation of 88% on room air. CXR showed hyperinflation but was negative for infiltrate or acute process. Patient's o2 improved with supplemental O2 at 2L and duoneb breathing treatments. She was started on levaquin and steroids for COPD exacerbation and admitted. 01/02/17- Patient states she is feeling better today. shortness of breath has improved but still feeing more fatigued than usual. She has had several copd exacerbations this year already. She is currently just using her nebulizer at home for her COPD. She had previously qualified for home oxygen after a COPD exacerbation but improved to the point of no longer needing it. 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 01/03/17- Patient states she is feeling much better today and is ready to go home. She says she has not felt short of breath since having the supplemental oxygen and duoneb breathing treatments q4H. She denies cough, sputum production or chest pain. Says her appetite has been good and she is not feeling fatigued or more weak than usual. Her daughter is present and does feel like her mother is back to baseline. Respiratory therapy will be conducting home oxygen qualifier today. Abnormal Labs: Abnormal Lab Results 01/03/17 01/03/17 Range/Units 06:05 06:05 RBC 3.62 L (3.80-5.40) M/uL Hgb 10.2 L (11.6-16.0) gm/dl Hct 30.7 L (35.0-47.0) % MPV 10.8 H (7.4-10.4) fl Neutrophils % 87.0 H (47-80) % Lymphocytes % 10.0 L (16-45) % Sodium 131 L (136-145) mmol/L Chloride 97 L (98-107) mmol/L Anion Gap 5.9 L (7-16) BUN 30 H (7-17) mg/dL Random Glucose 148 H (70-110) mg/dL AST 13 L (14-36) U/L Total Protein 5.9 L (6.3-8.2) gm/dL Albumin 3.1 L (3.5-5.0) gm/dL Condition at Discharge: (2) Stable Discharge Medications - Discharge Medications Prescriptions: Ipratropium/Albuterol [Duoneb] 3 ml INH RESP.Q4H.[facility] #30 ampul.neb Levofloxacin [Levaquin Tab] 500 mg PO DAILY #3 tab Prednisone [Prednisone 20Mg] 40 mg PO DAILY #6 tab Home Medications: Ambulatory Orders Albuterol Sulfate [Proair Hfa] 1 - 2 puff IH .EVERY 4-6 HOURS PRN #1 inhaler 01/ 20/17 [Last Taken Unknown] Calcium Carbonate [Tums] 500 mg PO Q4H PRN #0 tab.chew 11/14/16 [Last Taken Unknown] Ipratropium/Albuterol [Duoneb] 3 ml INH RESP.Q4H.[facility] #30 ampul.neb 01/03/17 [ Last Taken Unknown] Levofloxacin [Levaquin Tab] 500 mg PO DAILY #3 tab 01/03/17 [Last Taken Unknown] Prednisone [Prednisone 20Mg] 40 mg PO DAILY #6 tab 01/03/17 [Last Taken Unknown] Discharge Plan - Discharge Instructions Activity at Discharge: Wear Oxygen At All Times Diet at Discharge: Regular Diet Additional Instructions: Please follow up in the Family practice in the next 7-10 days Starting tomorrow: Continue Levaquin 500mg daily for the next 3 days continue prednisone 40mg daily for the next 3 days Take stiolto respimat script to pharmacy. If able to be filled, start 2 puffs inhaled once daily. Only use duoneb if having breakthrough shortness of breath. If Stiolto is not able to be filled, use duoneb q4H while awake daily. Please call with any questions or concerns Please return to ED for any new or worsening symptoms
== END 2017-01-03 18:15 | disposition home or self-care (01) | DRG 192 ==
LOC: ER 15:10 → MEDSURG 17:54 → OBSVTOIN 01-02 12:06
PROVIDERS: ADMIT Family Medicine; ATTEND Family Medicine
DX: J44.1 Chronic obstructive pulmonary disease with (acute) exacerbation (principal); E78.00 Pure hypercholesterolemia, unspecified; Z66 Do not resuscitate; R09.2 Respiratory arrest; I10 Essential (primary) hypertension
CPT/HCPCS: 99285 ×2; 94760; 82550; 85025; 82553; 84484; 80048; 80053; 85027; 71020; 94640 ×2; 94761; 93005; 93010; G0378 ×7; J3490; 94620; 99223; 99239; J1650; J1956; J2930

== ENCOUNTER 2017-01-16 15:32 | Emergency (ER) | payer MEDICARE ==
[2017-01-16] MEDS ORDERED: IPRATROPIUM/ALBUTEROL (0.5MG/3MG) NEB INH ONE ×2 (16:00)
[2017-01-16] MEDS ORDERED: METHYLPREDNISOLONE PF 125MG/VIAL IVP ONE (16:00)
--- NOTE | 2017-01-16 16:05 | Emergency Department Record ---
History of Present Illness - General Chief Complaint: Difficulty Breathing Stated Complaint: LIZ Time Seen by Provider: 01/16/17 16:00 Source: Patient Mode of Arrival: Wheelchair Limitations: No limitations - History of Present Illness Initial Comments: 81 yo female presents with cough and shortness of breath. She has a history of COPD. She has some yellow sputum. No blood. No fever. She has been about 1.5 weaks since she finished steroids. She was admitted about one month ago for COPD. No edema. No chest pain. No NVD. No falls or syncope. PCP is the [facility]. She is on 2 L NC at baseline at home. She is a non smoker. She lives alone but she has a supportive family. MD Complaint: Cough, Shortness of breath Onset/Timin -: Days(s) Severity: Moderate Consistency: Intermittent Improves With: Nothing Worsens With: Coughing Known History Of: COPD Context: Recent URI Associated Symptoms: Cough, Sputum production, Other Treatments Prior to Arrival: None - Related Data Home Oxygen Amount: 2 Liters Previous Rx's Medication Instructions Recorded Albuterol Sulfate [Proair Hfa] 1 - 2 puff IH .EVERY 4-6 HOURS PRN 11/14/16 #1 inhaler Calcium Carbonate [Tums] 500 mg PO Q4H PRN #0 tab.chew 11/14/16 Ipratropium/Albuterol [Duoneb] 3 ml INH RESP.Q4H.[facility] #30 ampul.neb 01/03/17 Azithromycin [Zithromax] 250 mg PO DAILY #4 tab 01/16/17 Prednisone [Prednisone 20Mg] 20 mg PO BID #10 tab 01/16/17 Allergies Allergy/AdvReac Type Severity Reaction Status Date / Time lisinopril Allergy Unknown CONGESTION Verified 01/16/17 15:49 Travel Screening - Travel/Exposure Within Last 30 Days Have you traveled within the last 30 days?: No - Travel/Exposure Within Last Year Have you traveled outside the [place] in the last year?: No - Additonal Travel Details Have you been exposed to anyone with a communicable illness?: No Review of Systems Constitutional: Denies: Chills, Fever, Malaise, Weakness Eyes: Denies: Eye discharge ENT: Denies: Congestion, Ear pain, Throat pain Respiratory: Reports: Cough, Dyspnea, Wheezes. Denies: Hemoptysis Cardiovascular: Denies: Arrhythmia, Chest pain, Edema, Palpitations, Syncope Endocrine: Denies: Fatigue Gastrointestinal: Denies: Abdominal pain, Diarrhea, Nausea, Vomiting Genitourinary: Denies: Dysuria, Urgency Musculoskeletal: Denies: Arthralgia, Joint swelling, Myalgia, Neck pain Skin: Denies: Bruising, Change in color, Rash Neurological: Denies: Confusion, Headache Psychiatric: Denies: Anxiety Hematological/Lymphatic: Denies: Blood Clots, Easy bleeding, Easy bruising, Swollen glands Past Medical History - SOCIAL HISTORY Smoking Status: Former smoker Drug Use: None - RESPIRATORY Hx Respiratory Disorders: Yes Hx COPD: Yes Hx Pneumonia: Yes Hx Sleep Apnea: Yes Hx of CPAP: No - CARDIOVASCULAR Hx Cardio Disorders: Yes Hx Hypertension: Yes Comment:: hypercholesteremia, AAA - NEURO Hx Neuro Disorders: No Comment:: "memory issues" per daughter - GI Hx GI Disorders: Yes Hx Reflux: Yes Comment:: abdominal aneurysm - Hx Genitourinary Disorders: Yes Hx Bladder Problem: Yes (cancer) - ENDOCRINE Hx Endocrine Disorders: No Hx Diabetes: No Hx Thyroid Disease: No - MUSCULOSKELETAL Hx Musculoskeletal Disorders: Yes Hx Arthritis: Yes - PSYCH Hx Psych Problems: No - HEMATOLOGY/ONCOLOGY Hx Hematology/Oncology Disorders: Yes Hx Cancer: Yes (bladder 2010 approx) Hx Blood Transfusions: Yes Hx Blood Transfusion Reaction: No Family Medical History Any Significant Family History?: No Hx Cancer: Mother, Children, Brother/Sister Hx Resp Disorders: Children Physical Exam - General General Appearance: Alert, Oriented x3, Cooperative, No acute distress, Other ( At rest non labored, appears relaxed.) Limitations: No limitations - Head Head exam: Normal inspection - Eye Eye exam: Normal appearance, PERRL. negative: Conjunctival injection, Periorbital swelling - ENT ENT exam: Normal exam Ear exam: Normal external inspection Nasal Exam: Normal inspection Mouth exam: Normal external inspection Teeth exam: Normal inspection Throat exam: Normal inspection - Neck Neck exam: Normal inspection, Full ROM. negative: Lymphadenopathy, Tenderness - Respiratory Respiratory exam: Decreased breath sounds, Prolonged expiratory, Rhonchi, Wheezes, Other (Normal work of breathing at rest). negative: Normal lung sounds bilaterally, Accessory muscle use, Chest wall tenderness, Rales, Respiratory distress, Stridor - Cardiovascular Cardiovascular Exam: Regular rate, Normal rhythm, Normal heart sounds Peripheral Pulses: 2+: Radial (R), Radial (L) - GI/Abdominal GI/Abdominal exam: Soft. negative: Tenderness - Rectal Rectal exam: Deferred - exam: Deferred - Extremities Extremities exam: Normal inspection, Full ROM, Normal capillary refill. negative: Pedal edema, Tenderness - Back Back exam: Reports: Normal inspection, Full ROM. Denies: Muscle spasm, Rash noted, Tenderness - Neurological Neurological exam: Alert, Normal gait, Oriented X3. negative: Altered, Motor sensory deficit - Psychiatric Psychiatric exam: Normal affect, Normal mood. negative: Agitated, Anxious, Depressed - Skin Skin exam: Dry, Intact, Normal color, Warm. negative: Cyanosis, Diaphoretic, Erythema Course Vital Signs 01/16/17 15:41 Temperature 98.2 F Pulse Rate 107 H Respiratory 24 Rate Blood Pressure 119/68 Pulse Ox 94 L - Reevaluation(s) Reevaluation #1: The RT is in the room for a treatment. She has expiratory wheezing. She is 94% on 2 LNC which is her normal oxygen setting. 01/16/17 16:04 Reevaluation #2: The labs were reviewed. No acute changes on the CBC The sodium is 130. Prior Sodium was 131 on the 11th. 01/16/17 16:33 Reevaluation #3: CXR read as chronic interstitial changes, no obvious acute changes. 01/16/17 17:12 Reevaluation #4: The patient ambulated with Biox at 2LNC She maintained her saturations 92-94% on her baseline oxygen I offered OBV for monitoring and treatments The daughter, grandmother and the patient all agree they prefer to be at home They understand that her COPD seems to be worsening and this trend is likely to continue She has decision making capacity with very supportive daughters. She chooses to be home where she is comfortable. She can treat with nebulized treatments, steroids and antibiotics at home. They were informed that returning at any point in time for a reevaluation is always an option. 01/16/17 17:58 Reevaluation #5: I JAKE Olson of the [facility]. she will facilitate a social sciences department chair consult for first of the week for home care resources 01/16/17 18:11 Medical Decision Making - Lab Data Result diagrams: 01/16/17 16:05 01/16/17 16:05 Disposition Disposition: Discharge Clinical Impression: COPD exacerbation, Bronchitis Disposition: Home, Self-Care Condition: (2) Stable Instructions: Chronic Obstructive Pulmonary Disease (ED), Chronic Bronchitis ( ED) Additional Instructions: You may use your nebulizer every 4 hours as needed for wheezing Take Prednisone twice daily for 5 days Take the Zithromax daily for the next 4 days Call your doctor on Thursday for close follow up Return immediately if you are short of breath on your oxygen, fever, vomiting or any new concerns. Prescriptions: Prednisone [Prednisone 20Mg] 20 mg PO BID #10 tab Azithromycin [Zithromax] 250 mg PO DAILY #4 tab Forms: Patient Portal Access Time of Disposition: 18:03
[2017-01-16 16:12] LABS: BASO % 0.2 % (0-6); EOS % 1.5 % (0-6); GRAN % 78.1 % (47-80); HEMATOCRIT 34.2 % (35.0-47.0); HEMOGLOBIN 11.8 gm/dl (11.6-16.0); LYMPH % 14.3 % (16-45); MEAN CELL VOLUME 82.6 fl (81-97); MEAN CORPUSCULAR HEMOGLOBIN 28.5 pg (27-33); MEAN CORPUSCULAR HGB CONC 34.5 g/dl (32-36); MONO % 5.9 % (0-9); PLATELET COUNT 154 K/uL (130-400); RED BLOOD COUNT 4.14 M/uL (3.80-5.40); RED CELL DISTRIBUTION WIDTH 13.7 % (11.5-14.5); WHITE BLOOD COUNT W/O DIFF 8.6 K/uL (4.2-12.2)
[2017-01-16 16:26] LABS: ANION GAP 5.5 (7-16); BLOOD UREA NITROGEN 10 mg/dL (7-17); CARBON DIOXIDE 28.5 mmol/L (22-30); CREATININE 0.8 mg/dL (0.52-1.04); EST GLOMERULAR FILTRATION RATE > 60 ml/min; GLUCOSE,RANDOM 103 mg/dL (70-110)
[2017-01-16] MEDS ORDERED: AZITHROMYCIN 500 MG TABLET PO ONE (16:46)
--- NOTE | 2017-01-20 14:18 | RADIOLOGY REPORT ---
EXAM: CHEST, TWO VIEWS HISTORY: PATIENT HAS COUGH TIMES A FEW WEEKS. TECHNIQUE: Two views of the chest are provided along with the comparison study dated 02/05/08. FINDINGS: The cardiomediastinal silhouette is within normal limits for size and contour. The abad appear unremarkable. Chronic interstitial changes with bilateral apical pleural thickening are similar to the previous examination. No obvious focal consolidation or pleural effusions are identified. Subtle interstitial infiltrates cannot be entirely excluded. No pneumothorax is noted. COPD changes are identified. IMPRESSION: CHRONIC INTERSTITIAL CHANGES ARE IDENTIFIED BILATERALLY. SUBTLE INTERSTITIAL INFILTRATES CANNOT BE ENTIRELY EXCLUDED. NO OBVIOUS FOCAL CONSOLIDATION, PLEURAL EFFUSION, OR PNEUMOTHORAX IS NOTED. COPD CHANGES ARE IDENTIFIED. JOB NUMBER: [id number] [facility]
== END 2017-01-16 18:32 | disposition home or self-care (01) ==
LOC: ER 15:32
DX: J44.0 Chronic obstructive pulmonary disease with (acute) lower respiratory infection (principal); J20.9 Acute bronchitis, unspecified; J44.1 Chronic obstructive pulmonary disease with (acute) exacerbation; Z87.891 Personal history of nicotine dependence
CPT/HCPCS: 71020; 80048; 85025; 94640; 96374; 99284; J2930

== ENCOUNTER 2017-05-03 07:15 | Inpatient (IN) | payer MEDICARE ==
[2017-05-03] MEDS ORDERED: IPRATROPIUM/ALBUTEROL (0.5MG/3MG) NEB INH ONE (07:26)
[2017-05-03] MEDS ORDERED: METHYLPREDNISOLONE PF 125MG/VIAL IVP ONE (07:30)
--- NOTE | 2017-05-03 07:32 | Emergency Department Record ---
History of Present Illness - General Chief complaint: Weakness Stated complaint: WEAKNESS/LIZ Time Seen by Provider: 05/03/17 07:24 Source: Patient, Family Mode of Arrival: Wheelchair Limitations: No limitations - History of Present Illness Initial comments: 81 yo female presents not feeling well since Thursday. She has had increased work of breathing, cough, green sputum, short of breath and weakness. She lives alone. She is on 2LNC oxygen normally. She has a history of COPD, prior pneumonia. She feels weak and shaking with activity. She feels labored with her breathing with activity. No edema of the legs. She is not having chest pain. The sputum is green without blood. MD Complaint: Generalized weakness Onset/Timin -: Days(s) Location: Generalized Quality: Aching Consistency: Constant Improves with: None Worsens with: None Associated Symptoms: Shortness of breath, Other - [place] Coma Scale Eye Response: (4) Open spontaneously Motor Response: (6) Obeys commands Verbal Response: (5) Oriented Norma Total: 15 - Related Data Previous Rx's Medication Instructions Recorded Albuterol Sulfate [Proair Hfa] 1 - 2 puff IH .EVERY 4-6 HOURS PRN 11/14/16 #1 inhaler Calcium Carbonate [Tums] 500 mg PO Q4H PRN #0 tab.chew 11/14/16 Ipratropium/Albuterol [Duoneb] 3 ml INH RESP.Q4H.WA #30 ampul.neb 01/03/17 Allergies Allergy/AdvReac Type Severity Reaction Status Date / Time lisinopril Allergy Unknown CONGESTION Unverified 03/06/17 15:51 Travel Screening - Travel/Exposure Within Last 30 Days Have you traveled within the last 30 days?: No Review of Systems Constitutional: Reports: Chills, Malaise, Weakness. Denies: Fever Eyes: Denies: Eye discharge, Eye pain, Photophobia, Vision change ENT: Denies: Congestion, Throat pain Respiratory: Reports: Cough, Dyspnea, Wheezes. Denies: Hemoptysis Cardiovascular: Denies: Chest pain, Palpitations, Syncope Endocrine: Reports: Fatigue Gastrointestinal: Denies: Abdominal pain, Diarrhea, Nausea, Vomiting Genitourinary: Denies: Dysuria, Urgency Musculoskeletal: Denies: Arthralgia, Back pain, Joint swelling, Myalgia, Neck pain Skin: Denies: Bruising, Change in color, Rash Neurological: Denies: Headache, Numbness, Weakness Psychiatric: Denies: Anxiety Hematological/Lymphatic: Denies: Blood Clots, Easy bleeding, Easy bruising, Swollen glands Past Medical History - SOCIAL HISTORY Smoking Status: Former smoker Alcohol Use: None Drug Use: None - RESPIRATORY Hx Respiratory Disorders: Yes Hx COPD: Yes Hx Pneumonia: Yes Hx Sleep Apnea: Yes Hx of CPAP: No - CARDIOVASCULAR Hx Cardio Disorders: Yes Hx Hypertension: Yes Comment:: hypercholesteremia, AAA - NEURO Hx Neuro Disorders: No Comment:: "memory issues" per daughter - GI Hx GI Disorders: Yes Hx Reflux: Yes Comment:: abdominal aneurysm - Hx Genitourinary Disorders: Yes Hx Bladder Problem: Yes (cancer) - ENDOCRINE Hx Endocrine Disorders: No Hx Diabetes: No Hx Thyroid Disease: No - MUSCULOSKELETAL Hx Musculoskeletal Disorders: Yes Hx Arthritis: Yes - PSYCH Hx Psych Problems: No - HEMATOLOGY/ONCOLOGY Hx Hematology/Oncology Disorders: Yes Hx Cancer: Yes (bladder 2010 approx) Hx Blood Transfusions: Yes Hx Blood Transfusion Reaction: No Family Medical History Any Significant Family History?: Yes Hx Cancer: Mother, Children, Brother/Sister Hx Resp Disorders: Children Physical Exam - General General Appearance: Alert, Oriented x3, Cooperative, No acute distress Limitations: No limitations - Head Head exam: Normal inspection - Eye Eye exam: Normal appearance - ENT ENT exam: Normal exam, Mucous membranes moist Ear exam: Normal external inspection Nasal Exam: Normal inspection Mouth exam: Normal external inspection - Neck Neck exam: Normal inspection, Full ROM. negative: Tenderness - Respiratory Respiratory exam: Accessory muscle use, Decreased breath sounds, Prolonged expiratory, Rhonchi, Wheezes. negative: Normal lung sounds bilaterally, Respiratory distress - Cardiovascular Cardiovascular Exam: Regular rate, Normal rhythm, Normal heart sounds Peripheral Pulses: 2+: Radial (R), Radial (L) - GI/Abdominal GI/Abdominal exam: Soft. negative: Tenderness - Rectal Rectal exam: Deferred - exam: Deferred - Extremities Extremities exam: Normal inspection, Full ROM, Normal capillary refill. negative: Pedal edema, Tenderness - Back Back exam: Reports: Normal inspection, Full ROM. Denies: Muscle spasm, Rash noted, Tenderness - Neurological Neurological exam: Alert, Normal gait, Oriented X3 - Psychiatric Psychiatric exam: Normal affect, Normal mood. negative: Agitated, Anxious - Skin Skin exam: Dry, Intact, Normal color, Warm Course Vital Signs 05/03/17 07:21 Temperature 98.2 F Pulse Rate 94 H Respiratory 18 Rate Blood Pressure 147/79 Pulse Ox 93 L - Reevaluation(s) Reevaluation #1: The labs were reviewed No acute changes on the CBC The CMP demonstrates a sodium of 132 and K of 3.3 The patient was rechecked after the breathing treatment Her wheezing is better but cough wiht rhonchi remains 05/03/17 08:01 05/03/17 08:06 The CXR was reviewed by me. COPD. Compared to the prior increased interstitial markings in the SAMMY may represent early infiltrate Reevaluation #2: The Troponin was negative EMR reviewed. Recent PFT demonstrated severe COPD I discussed the results the patient. I recommend admission for COPD with possible early pneumonia 05/03/17 08:12 Procedures - EKG Initial Date: 05/03/17 Time: 07:36 EKG: No Acute Changes, Unchanged From Previous EKG Detail: rate 90, Int normal, axis normal, ST normal Medical Decision Making - Lab Data Result diagrams: 05/03/17 07:30 05/03/17 07:30 Disposition Disposition: Admit Clinical Impression: COPD exacerbation, Weakness, DNR (do not resuscitate), Hyponatremia, Hypokalemia Pneumonia Qualifiers: Pneumonia type: due to unspecified organism Laterality: left Lung location: upper lobe of lung Qualified Code(s): J18.1 - Lobar pneumonia, unspecified organism Dyspnea Qualifiers: Dyspnea type: dyspnea on exertion Qualified Code(s): R06.09 - Other forms of dyspnea Disposition: Still a Patient at [facility] Decision to Admit: Admit from ER Decision to Admit Date: 05/03/17 Decision to Admit Time: 08:07 Condition: (2) Stable Time of Disposition: 08:07 Quality - Quality Measures Quality Measures: N/A - Blood Pressure Screening View Details: Yes Blood Pressure Classification: Hypertensive Reading Systolic Measurement: 147 Diastolic Measurement: 79 Screening for High Blood Pressure: < Pre-Hypertensive BP, F/U Documented > [ [id number]] Pre-Hypertensive Follow-up Interventions: Referral to alternative/primary care provider.
[2017-05-03 07:38] LABS: BASO % 0.4 % (0-6); EOS % 8.1 % (0-6); GRAN % 66.8 % (47-80); HEMOGLOBIN 11.9 gm/dl (11.6-16.0); MEAN CELL VOLUME 81.5 fl (81-97); MEAN CORPUSCULAR HEMOGLOBIN 28.5 pg (27-33); MONO % 4.7 % (0-9); PLATELET COUNT 150 K/uL (130-400); RED BLOOD COUNT 4.17 M/uL (3.80-5.40); RED CELL DISTRIBUTION WIDTH 14.2 % (11.5-14.5)
[2017-05-03 07:49] LABS: ALB/GLOB RATIO 1.3 (1.1-1.8); ALKALINE PHOSPHATASE 87 U/L (38-126); ALT/SGPT 14 U/L (9-52); ANION GAP 9.2 (7-16); AST/SGOT 17 U/L (14-36); BILIRUBIN,TOTAL 1.15 mg/dL (0.2-1.3); BLOOD UREA NITROGEN 12 mg/dL (7-17); CARBON DIOXIDE 30.8 mmol/L (22-30); CREATININE 0.9 mg/dL (0.52-1.04); EST GLOMERULAR FILTRATION RATE > 60 ml/min; GLUCOSE,RANDOM 112 mg/dL (70-110); INR 0.95; PARTIAL THROMBOPLASTIN TIME 29.1 SECONDS (24.5-39.1); PROTHROMBIN TIME (PATIENT) 10.7 SECONDS (9.5-12.1); TOTAL PROTEIN 7.2 gm/dL (6.3-8.2)
[2017-05-03] MEDS ORDERED: CEFTRIAXONE SODIUM 1 GM in 0.9 % SODIUM CHLORIDE 100ML 100 ML IVPB ONE (08:04)
[2017-05-03] MEDS ORDERED: AZITHROMYCIN 500 MG TABLET PO ONE (08:04)
[2017-05-03 08:06] LABS: TROPONIN I < 0.012 ng/mL (0.00-0.034)
[2017-05-03] MEDS ORDERED: CALCIUM CARBONATE 500 MG TAB.CHEW PO PRN (08:25)
[2017-05-03] MEDS ORDERED: ALBUTEROL SULFATE (0.083%) 2.5 MG/3 ML NEB INH PRN (08:35)
[2017-05-03] MEDS ORDERED: ACETAMINOPHEN 500 MG TABLET PO PRN (08:35)
[2017-05-03] MEDS ORDERED: POTASSIUM CHLORIDE 20 MEQ TABLET PO ONE (08:43)
[2017-05-03] MEDS ORDERED: METHYLPREDNISOLONE PF 125MG/VIAL IVP SCH (10:00)
[2017-05-03] MEDS ORDERED: AZITHROMYCIN 500 MG TABLET PO SCH (10:00)
[2017-05-03] MEDS: ENOXAPARIN 40 MG/0.4 ML SYR SQ SCH (10:09)
[2017-05-03] MEDS: HYDROCHLOROTHIAZIDE 12.5 MG CAPSULE PO SCH (10:09)
[2017-05-03] MEDS: ASPIRIN 81 MG CHEWABLE TABLET PO SCH (10:09)
[2017-05-03] MEDS: IPRATROPIUM/ALBUTEROL (0.5MG/3MG) NEB INH SCH ×4 (10:33→21:10)
[2017-05-03] MEDS ORDERED: AL HYDROX/MAG HYDROX 30ML UD PO ONE (18:51)
[2017-05-03] MEDS: METHYLPREDNISOLONE PF 125MG/VIAL IVP SCH (20:23)
[2017-05-03] MEDS: CEFTRIAXONE SODIUM 1 GM in 0.9 % SODIUM CHLORIDE 100ML 100 ML IVPB SCH (21:11)
[2017-05-03] MEDS ORDERED: RANITIDINE HCL 150 MG TABLET PO SCH (22:00)
[2017-05-03] MEDS: SIMVASTATIN 10MG TABLET PO SCH (22:37)
[2017-05-04] MEDS: IPRATROPIUM/ALBUTEROL (0.5MG/3MG) NEB INH SCH ×6 (01:49→21:39)
[2017-05-04] MEDS: METHYLPREDNISOLONE PF 125MG/VIAL IVP SCH ×2 (03:13→13:56)
[2017-05-04] MEDS: RANITIDINE HCL 150 MG TABLET PO SCH ×2 (06:09→18:26)
--- NOTE | 2017-05-04 07:10 | RADIOLOGY REPORT ---
EXAM: CHEST, TWO VIEWS HISTORY: COUGH. TECHNIQUE: Frontal and lateral views of the chest were obtained. Comparison: 01/16/17 chest. FINDINGS: The heart size is normal. Underlying emphysema. Biapical pleural thickening. Osteopenia. No pneumothorax. The lungs are otherwise clear. IMPRESSION: UNDERLYING EMPHYSEMA WITH BIAPICAL PLEURAL THICKENING. JOB NUMBER: [id number] MTDD
[2017-05-04] MEDS: CEFTRIAXONE SODIUM 1 GM in 0.9 % SODIUM CHLORIDE 100ML 100 ML IVPB SCH ×2 (10:24→21:02)
[2017-05-04] MEDS: HYDROCHLOROTHIAZIDE 12.5 MG CAPSULE PO SCH (10:25)
[2017-05-04] MEDS: ASPIRIN 81 MG CHEWABLE TABLET PO SCH ×2 (10:25→13:57)
[2017-05-04] MEDS: ENOXAPARIN 40 MG/0.4 ML SYR SQ SCH (10:25)
[2017-05-04] MEDS: AZITHROMYCIN 250 MG TABLET PO SCH (10:25)
--- NOTE | 2017-05-04 16:14 | History and Physical Report ---
DATE OF ADMISSION: 05/03/2017 CHIEF COMPLAINT: Cough, congestion, and dyspnea. HISTORY OF CHIEF COMPLAINT: This 81-year-old female presented to the Emergency Department stating not feeling well since Thursday, approximately 2 days ago. She had increased work of breathing, cough, green sputum, and weakness. She lives alone. She uses oxygen at 2 liters per minute nasal cannula. She has a history of COPD, prior pneumonias. She feels shaky with activity. She also has labored breathing with activity. No edema in her legs. She is not having any chest pain. Sputum is green, without blood. She uses home oxygen at 2 liters per minute nasal cannula. She was seen in the Emergency Department by Dr. Mcgregor. Admitted to the hospital for bronchitis, COPD, and clinical pneumonia, however, I do not believe there was any infiltrate seen on chest x-ray. She also has hyponatremia and hypokalemia. She is a Do Not Resuscitate. PAST MEDICAL HISTORY: She has bladder cancer and has had surgery on it. Hypertension. Hypercholesterolemia. Triple aneurism AAA. Dementia. Per daughter, memory is getting poor. PAST SURGICAL HISTORY: She had appendectomy and ovary removed at 20 years of age. Multiple bladder surgeries for bladder cancer. MEDICATIONS ON ADMISSION: Aspirin 81 mg daily, ProAir 2 puffs every 4-6 hours, DuoNebs every 4 hours while awake, hydrochlorothiazide 12.5 daily, Pravachol 20 mg at bedtime, Tums p.r.n. every 4 hours. ALLERGIES: Lisinopril. FAMILY PSYCHOSOCIAL HISTORY: She is a former smoker. Stopped about 1996. No alcohol or drug use. FAMILY HISTORY: Cancer with mother, children, brother, and sister. Respiratory problems with her children. REVIEW OF SYSTEMS: HEENT: See Chief Complaint. She has a sore throat, cough, congestion, and shortness of breath. Sputum is green in color. Cardiovascular: No chest pain, palpitations, or arrhythmias. Respiratory: She is [id number]. Cough. Congestion. Has more dyspnea with exertion and walking. Gastrointestinal: No nausea, vomiting, diarrhea, black stools, or bloody stools. Genitourinary: No dysuria, hematuria, frequency, or burning on urination. Musculoskeletal: She has diffuse joint pain, but no specific joint is bothering her at this time. Neurologic: No CVA, paralysis, or paresthesias. Gynecologic: No lumps in her breast or any abnormal vaginal bleeding. Endocrine: No diabetes or thyroid disease. Integument: No rash, ulcers, changes in moles, or yellow skin. PHYSICAL EXAMINATION: VITAL SIGNS: Height 5'5". Weight 131 pounds. Temperature 97.2. Pulse 89. Blood pressure 112/52. Respiratory rate 18. Pulse ox 98% on 2 liters per minute nasal cannula. HEENT: Pupils equal, round, and reactive to light and accommodation. Extraocular muscles intact. Throat is clear. Nose is clear. Tympanic membranes jones. NECK: Supple. No jugular venous distention. No hepatojugular reflux. No carotid bruits. Thyroid is smooth. CARDIOVASCULAR: Regular rate and rhythm without murmurs, clicks, rubs, or gallops. RESPIRATORY: Decreased breath sounds. Wheezing bilaterally. Some congestion bilaterally. ABDOMEN: Soft, nontender, no hepatosplenomegaly. No masses or tenderness. Bowel sounds active. No bruits. EXTREMITIES: No pitting edema. No cyanosis or clubbing. Full range of motion. Peripheral pulses good. BREASTS: Deferred. GYNECOLOGIC: Deferred. RECTAL: Deferred. NEUROLOGIC: Cranial nerves II-XII intact. No gross deficits. Sensation normal. Strength normal. Deep tendon reflexes equal bilaterally. Babinski is negative. Daughter states she is having some memory issues. MENTAL STATUS: Alert and oriented x3. IMPRESSION: 1. Acute bronchitis, possible pneumonia. 2. COPD exacerbation. 3. Hypoxia on room air. Normally uses home oxygen at 2 liters per minute nasal cannula. 4. History of hypertension. 5. History of hypercholesterolemia. 6. History of bladder cancer. PLAN: IV Rocephin 1 gram every 12 hours. Azithromycin 500 mg daily orally. Solu-Medrol every 8 hours 80 mg. DuoNebs every 4 hours. Albuterol every 2 hours p.r.n. Home oxygen. Admit to the inpatient care based on her medical assessment. After consideration of the patient's risk factors, age, comorbidity, and patient presenting symptoms and acuity, I expect that this patient will remain in the hospital greater than or equal to two midnights and that the services warrant inpatient care because of acute bronchitis, COPD, hypoxia on room air. Estimated length of stay three days. The patient may reasonably be expected to be discharged or transferred to a hospital within 96 hours after admission to [facility] services as needed. O2 therapy, IV antibiotics, breathing treatments, Solu-Medrol IV. I certify that my determination is in accordance with my understanding of Medicare requirements for reasonable and necessary inpatient services. ARYAN
[2017-05-04] MEDS: PREDNISONE 20 MG TAB PO SCH (18:26)
[2017-05-04] MEDS: SIMVASTATIN 10MG TABLET PO SCH (21:05)
[2017-05-05] MEDS: IPRATROPIUM/ALBUTEROL (0.5MG/3MG) NEB INH SCH ×3 (02:18→10:58)
[2017-05-05] MEDS: RANITIDINE HCL 150 MG TABLET PO SCH (06:53)
--- NOTE | 2017-05-05 07:21 | History & Physical ---
History of Present Illness - Date of Service Date of Service for History & Physical: 05/05/17 - History of Present Illness Admitting Diagnosis: COPD, Bronchitis, Clinical Pneumonia Travel Screening - Travel/Exposure Within Last 30 Days Have you traveled within the last 30 days?: No - Travel/Exposure Within Last Year Have you traveled outside the [place] in the last year?: No - Additonal Travel Details Have you been exposed to anyone with a communicable illness?: No - Travel Symptoms Symptom Screening: None Review of Systems Constitutional: Reports: Chills, Malaise, Weakness. Denies: Fever Eyes: Denies: Eye discharge, Eye pain, Photophobia, Vision change ENT: Denies: Congestion, Throat pain Respiratory: Reports: Cough, Dyspnea, Wheezes. Denies: Hemoptysis Cardiovascular: Denies: Chest pain, Palpitations, Syncope Endocrine: Reports: Fatigue Gastrointestinal: Denies: Abdominal pain, Diarrhea, Nausea, Vomiting Genitourinary: Denies: Dysuria, Urgency Musculoskeletal: Denies: Arthralgia, Back pain, Joint swelling, Myalgia, Neck pain Skin: Denies: Bruising, Change in color, Rash Neurological: Denies: Headache, Numbness, Weakness Psychiatric: Denies: Anxiety Hematological/Lymphatic: Denies: Blood Clots, Easy bleeding, Easy bruising, Swollen glands Past Medical History - SOCIAL HISTORY Smoking Status: Former smoker - RESPIRATORY Hx Respiratory Disorders: Yes Hx COPD: Yes Hx Dyspnea: Yes Hx Pneumonia: Yes Hx Sleep Apnea: Yes (narcolepsy) - CARDIOVASCULAR Hx Cardio Disorders: Yes Hx Hypertension: Yes Comment:: hypercholesteremia, AAA - NEURO Hx Neuro Disorders: No Comment:: "memory issues" per daughter - GI Hx GI Disorders: Yes Hx Reflux: Yes Comment:: abdominal aneurysm - Hx Genitourinary Disorders: Yes Hx Bladder Problem: Yes (cancer) - ENDOCRINE Hx Endocrine Disorders: No Hx Diabetes: No Hx Thyroid Disease: No - MUSCULOSKELETAL Hx Musculoskeletal Disorders: Yes Hx Arthritis: Yes Comment:: hx fracture wrist - PSYCH Hx Psych Problems: No - HEMATOLOGY/ONCOLOGY Hx Hematology/Oncology Disorders: Yes Hx Cancer: Yes (bladder 2009) Hx Blood Transfusions: Yes Hx Blood Transfusion Reaction: No Family Medical History Any Significant Family History?: Yes Hx Cancer: Mother, Children, Brother/Sister Hx Resp Disorders: Children H&P Meds/Allergies - Allergies Allergies: Allergies Allergy/AdvReac Type Severity Reaction Status Date / Time lisinopril Allergy Unknown CONGESTION Unverified 03/06/17 15:51 - Home Medications Home Medications Medication Instructions Recorded Confirmed Last Taken Aspirin [Aspirin] 81 mg PO DAILY 05/04/17 05/04/17 Unknown Hydrochlorothiazide 12.5 mg PO DAILY 05/04/17 05/04/17 Unknown Previous Rx's Medication Instructions Recorded Albuterol Sulfate [Proair Hfa] 1 - 2 puff IH .EVERY 4-6 HOURS PRN 11/14/16 #1 inhaler Calcium Carbonate [Tums] 500 mg PO Q4H PRN #0 tab.chew 11/14/16 Ipratropium/Albuterol [Duoneb] 3 ml INH RESP.Q4H.WA #30 ampul.neb 01/03/17 - Active Medications Active Medications: Current Medications Acetaminophen (Tylenol 500mg Tab) 500 mg PO Q6H PRN PRN Reason: PAIN/TEMP Albuterol Sulfate () 2.5 mg INH RESP.Q2H PRN PRN Reason: DIFFICULTY IN BREATHING Albuterol/Ipratropium (Duoneb) 3 ml INH RESP.Q4H.WA [facility] Last Admin: 05/05/17 06:34 Dose: 3 ml Aspirin (Aspirin Chewable) 81 mg PO DAILY [facility] Last Admin: 05/04/17 10:25 Dose: 81 mg Azithromycin (Zithromax) 250 mg PO DAILY [facility] Last Admin: 05/04/17 10:25 Dose: 250 mg Calcium Carbonate/Glycine (Tums) 500 mg PO Q4H PRN PRN Reason: INDIGESTION Enoxaparin Sodium (Lovenox) 40 mg SQ DAILY [facility] Last Admin: 05/04/17 10:25 Dose: 40 mg Hydrochlorothiazide (Hctz 12.5mg) 12.5 mg PO DAILY [facility] Last Admin: 05/04/17 10:25 Dose: 12.5 mg Ceftriaxone Sodium 1 gm/ (Sodium Chloride) 100 mls @ 100 mls/hr IVPB Q12H [facility] Stop: 05/08/17 21:01 Last Infusion: 05/04/17 23:15 Dose: Infused Prednisone (Prednisone 20mg) 20 mg PO BIDWM [facility] Last Admin: 05/04/17 18:26 Dose: 20 mg Ranitidine HCl (Zantac) 150 mg PO BIDAC [facility] Last Admin: 05/05/17 06:53 Dose: 150 mg Simvastatin (Zocor) 10 mg PO QHS [facility] Last Admin: 05/04/17 21:05 Dose: 10 mg Physical Exam - Vital Signs Vital Signs: Vital Signs - Last 24 Hrs Temp Pulse Pulse Pulse Resp BP BP 05/05/17 06:34 85 20 05/05/17 02:18 92 H 20 05/05/17 00:00 97.4 F L 88 18 05/04/17 21:39 84 18 05/04/17 17:05 95 H 17 05/04/17 16:00 98 F 90 20 05/04/17 13:34 96 H 16 05/04/17 10:23 05/04/17 10:20 91 H 18 05/04/17 09:16 97.6 F 134/52 05/04/17 09:00 88 18 05/04/17 08:00 97.4 F L 78 18 112/57 BP Pulse Ox 05/05/17 06:34 90 L 05/05/17 02:18 05/05/17 00:00 120/54 94 L 05/04/17 21:39 94 L 05/04/17 17:05 97 05/04/17 16:00 96 05/04/17 13:34 99 05/04/17 10:23 95 05/04/17 10:20 97 05/04/17 09:16 05/04/17 09:00 05/04/17 08:00 95 - General General Appearance: Alert, Oriented x3, Cooperative, No acute distress Limitations: No limitations - Head Head exam: Normal inspection - Eye Eye exam: Normal appearance - ENT ENT exam: Normal exam, Mucous membranes moist Ear exam: Normal external inspection Nasal Exam: Normal inspection Mouth exam: Normal external inspection - Neck Neck exam: Normal inspection, Full ROM. negative: Tenderness - Respiratory Respiratory exam: Accessory muscle use, Decreased breath sounds, Prolonged expiratory, Rhonchi, Wheezes. negative: Normal lung sounds bilaterally, Respiratory distress - Cardiovascular Cardiovascular Exam: Regular rate, Normal rhythm, Normal heart sounds Peripheral Pulses: 2+: Radial (R), Radial (L) - GI/Abdominal GI/Abdominal exam: Soft. negative: Tenderness - Rectal Rectal exam: Deferred - exam: Deferred - Extremities Extremities exam: Normal inspection, Full ROM, Normal capillary refill. negative: Pedal edema, Tenderness - Back Back exam: Reports: Normal inspection, Full ROM. Denies: Muscle spasm, Rash noted, Tenderness - Neurological Neurological exam: Alert, Normal gait, Oriented X3 - Psychiatric Psychiatric exam: Normal affect, Normal mood. negative: Agitated, Anxious - Skin Skin exam: Dry, Intact, Normal color, Warm Results - Labs Result Diagrams: 05/03/17 07:30 05/03/17 07:30 AMI H&P Plan - EKG Initial Date: 05/03/17 Time: 07:36 EKG: No Acute Changes, Unchanged From Previous EKG Detail: rate 90, Int normal, axis normal, ST normal Plan - Inpatient Certification Inpatient Certification: Admit to inpatient care: Based on my medical assessment, after consideration of patient's risk factors (age, co-morbidities and patient presenting symptoms and acuity), I expect that this patient will remain in the hospital greater than or equal to two midnights and that the services needed warrant inpatient care because: Patient Risk Factors: [] Estimated length of stay: [] The patient may reasonably be expected to be discharged or transferred to a hospital within 96 hours after admission to [facility]. Services needed: [] Post hospital care (if known): [] I certify that my determination is in accordance with my understanding of Medicare requirements for reasonable and necessary inpatient services.
--- NOTE | 2017-05-05 07:25 | Discharge Summary ---
Providers Discharge Summary Date: 05/05/17 Date of admission: 05/03/17 08:31 Expected Date of Discharge: 05/05/17 Attending physician: Joseluis Campos Primary care physician: RUBY AMBROSE Physical Exam - Vital Signs Vital Signs: Vital Signs - Last 24 Hrs Temp Pulse Pulse Pulse Resp BP BP 05/05/17 06:34 85 20 05/05/17 02:18 92 H 20 05/05/17 00:00 97.4 F L 88 18 05/04/17 21:39 84 18 05/04/17 17:05 95 H 17 05/04/17 16:00 98 F 90 20 05/04/17 13:34 96 H 16 05/04/17 10:23 05/04/17 10:20 91 H 18 05/04/17 09:16 97.6 F 134/52 05/04/17 09:00 88 18 05/04/17 08:00 97.4 F L 78 18 112/57 BP Pulse Ox 05/05/17 06:34 90 L 05/05/17 02:18 05/05/17 00:00 120/54 94 L 05/04/17 21:39 94 L 05/04/17 17:05 97 05/04/17 16:00 96 05/04/17 13:34 99 05/04/17 10:23 95 05/04/17 10:20 97 05/04/17 09:16 05/04/17 09:00 05/04/17 08:00 95 - General General Appearance: Alert, Oriented x3, Cooperative, No acute distress Limitations: No limitations - Head Head exam: Normal inspection - Eye Eye exam: Normal appearance - ENT ENT exam: Normal exam, Mucous membranes moist Ear exam: Normal external inspection Nasal Exam: Normal inspection Mouth exam: Normal external inspection - Neck Neck exam: Normal inspection, Full ROM. negative: Tenderness - Respiratory Respiratory exam: Decreased breath sounds, Rhonchi (base b/l, faint). negative : Normal lung sounds bilaterally, Prolonged expiratory, Respiratory distress, Wheezes - Cardiovascular Cardiovascular Exam: Regular rate, Normal rhythm, Normal heart sounds Peripheral Pulses: 2+: Radial (R), Radial (L) - GI/Abdominal GI/Abdominal exam: Soft. negative: Tenderness - Rectal Rectal exam: Deferred - exam: Deferred - Extremities Extremities exam: Normal inspection, Full ROM, Normal capillary refill. negative: Pedal edema, Tenderness - Back Back exam: Reports: Normal inspection, Full ROM. Denies: Muscle spasm, Rash noted, Tenderness - Neurological Neurological exam: Alert, Normal gait, Oriented X3 - Psychiatric Psychiatric exam: Normal affect, Normal mood. negative: Agitated, Anxious - Skin Skin exam: Dry, Intact, Normal color, Warm Hospitalization - Hospitalization Admission Diagnosis: COPD, Bronchitis, Clinical Pneumonia - Problem List/Discharge Diagnosis (1) Pneumonia Current Visit: Yes Status: Acute Discharge Diagnosis: Pneumonia type: due to unspecified organism Laterality: left Lung location: upper lobe of lung Qualified Code(s): J18.1 - Lobar pneumonia, unspecified organism Base Code: J18.9 - PNEUMONIA, UNSPECIFIED ORGANISM Comment: 05/05/17: - Patient continues to improve & is very anxious to get home. Denies SOB, CP. Coughing up clear sputum which was previously green. - CXR negative for infiltrate. - most recent WBC count normal and patient is afebrile. - complete Azithromycin 250 mg po daily for 5 day course. script sent to [facility] - Cefdinir 300 mg Q 12 hours x 2 days - Complete prednisone 20mg BID until gone. script sent to pharmacy - continue duoneb breathing treatments q4H. - continue supplemental O2 via NC at 2L at all times - Follow up in [facility] Thursday05/15/17 @920 am. Please be sure to get labs completed prior to your appt. - Patient refusing any home therapy services. She does have a good support system according to patient's granddaughter who is at bedside today. (2) COPD exacerbation Current Visit: Yes Status: Acute Base Code: J44.1 - CHRONIC OBSTRUCTIVE PULMONARY DISEASE W (ACUTE) EXACERBATION Comment: 05/05/17: - Patient continues to improve & is very anxious to get home. Denies SOB, CP. Coughing up clear sputum which was previously green. - await final sputum, BC reading - CXR negative for infiltrate. - most recent WBC count normal and patient is afebrile. - complete Azithromycin 250 mg po daily for 5 day course. script sent to [facility] - Cefdinir 300 mg Q 12 hours x 2 days - Complete prednisone 20mg BID until gone. script sent to pharmacy - continue duoneb breathing treatments q4H. - continue supplemental O2 via NC at 2L at all times - Follow up in [facility] Thursday05/15/17 @920 am. Please be sure to get labs completed prior to your appt. - Patient refusing any home therapy services. She does have a good support system according to patient's granddaughter who is at bedside today. - return as needed (3) DNR (do not resuscitate) Current Visit: Yes Status: Acute Base Code: Z66 - DO NOT RESUSCITATE Comment: 05/05/17- Patient remains DNR status - Hospitalization Course Disposition: Home, Self-Care Hospital Course: 05/05/17: pt sitting up in bed with family at bedside. states " i feel great and i'm ready to go home." Patient denies SOB, CP, abd pain, change in bowel habits, dizziness, confusion, lightheadedness, n/v, fever or chills. Her productive sputum is now clear. Baseline appetite. Ambulating the room independently. No additional concerns at this time. Feels comfortable going home. NOt interested in any home health services. Feels she has a great support system at home. Condition at Discharge: (2) Stable Discharge Medications - Discharge Medications Prescriptions: Azithromycin [Zithromax] 250 mg PO DAILY #2 tab Cefdinir 300 mg PO NOW #4 capsule Prednisone [Prednisone 20Mg] 20 mg PO BIDWM #8 tab Home Medications: Ambulatory Orders Albuterol Sulfate [Proair Hfa] 1 - 2 puff IH .EVERY 4-6 HOURS PRN #1 inhaler [Last Taken 05/01/17] Calcium Carbonate [Tums] 500 mg PO Q4H PRN #0 tab.chew 11/14/16 [Last Taken ] Ipratropium/Albuterol [Duoneb] 3 ml INH RESP.Q4H.WA #30 ampul.neb 01/03/17 [ Last Taken 05/02/17] Aspirin 81 mg PO DAILY 05/04/17 [Last Taken Unknown] Hydrochlorothiazide 12.5 mg PO DAILY 05/04/17 [Last Taken Unknown] Azithromycin [Zithromax] 250 mg PO DAILY #2 tab 05/05/17 [Last Taken Unknown] Cefdinir 300 mg PO NOW #4 capsule 05/05/17 [Last Taken Unknown] Prednisone [Prednisone 20Mg] 20 mg PO BIDWM #8 tab 05/05/17 [Last Taken Unknown] Discharge Plan - Discharge Instructions Activity at Discharge: Increase Activity as Tolerated Diet at Discharge: Regular Diet Additional Instructions: Pulmonary medication: Complete Azithromycin and Cefdinir (antibiotic therapy) Prednisone 20 mg twice daily until gone Nebulizer albuterol treatment Q4 hours continue home oxygen at all times follow up with primary provider 05/15/17 @176. Please contact the office to change appt date and time if needed please get labs done prior to your follow up visit. return re any new or worsening symptoms.
[2017-05-05] MEDS: CEFTRIAXONE SODIUM 1 GM in 0.9 % SODIUM CHLORIDE 100ML 100 ML IVPB SCH (09:05)
[2017-05-05] MEDS: PREDNISONE 20 MG TAB PO SCH (09:06)
[2017-05-05] MEDS: AZITHROMYCIN 250 MG TABLET PO SCH (10:41)
[2017-05-05] MEDS: ASPIRIN 81 MG CHEWABLE TABLET PO SCH (10:41)
[2017-05-05] MEDS: ENOXAPARIN 40 MG/0.4 ML SYR SQ SCH (10:41)
[2017-05-05] MEDS: HYDROCHLOROTHIAZIDE 12.5 MG CAPSULE PO SCH (10:41)
== END 2017-05-05 12:05 | disposition home or self-care (01) | DRG 190 ==
LOC: ER 07:15 → MEDSURG 08:31
PROVIDERS: ADMIT Emergency Medicine; ATTEND Family Medicine
DX: J44.0 Chronic obstructive pulmonary disease with (acute) lower respiratory infection (principal); J18.1 Lobar pneumonia, unspecified organism; J44.1 Chronic obstructive pulmonary disease with (acute) exacerbation; J20.9 Acute bronchitis, unspecified; Z66 Do not resuscitate; I10 Essential (primary) hypertension; E78.00 Pure hypercholesterolemia, unspecified; Z85.51 Personal history of malignant neoplasm of bladder; F03.90 Unspecified dementia, unspecified severity, without behavioral disturbance, psychotic disturbance, mood disturbance, and anxiety
CPT/HCPCS: 71020; 80053; 83880; 84484; 85025; 85610; 85730; 93005; 93010; 93041; 94640; 94760; 94761; 96365; 96375; 99223; 99233; 99285; J1650; J2930; J7512

== ENCOUNTER 2017-05-31 11:41 | Emergency (ER) | payer MEDICARE ==
[2017-05-31] MEDS ORDERED: METHYLPREDNISOLONE PF 125MG/VIAL IVP ONE (12:20)
[2017-05-31] MEDS ORDERED: IPRATROPIUM/ALBUTEROL (0.5MG/3MG) NEB INH ONE (12:20)
[2017-05-31 12:42] LABS: HEMATOCRIT 33.9 % (35.0-47.0); HEMOGLOBIN 11.7 gm/dl (11.6-16.0); MEAN CELL VOLUME 81.9 fl (81-97); MEAN CORPUSCULAR HEMOGLOBIN 28.3 pg (27-33); MEAN CORPUSCULAR HGB CONC 34.5 g/dl (32-36); MEAN PLATELET VOLUME 9.7 fl (7.4-10.4); PLATELET COUNT 143 K/uL (130-400); RED BLOOD COUNT 4.14 M/uL (3.80-5.40); RED CELL DISTRIBUTION WIDTH 14.5 % (11.5-14.5); WHITE BLOOD COUNT W/O DIFF 3.9 K/uL (4.2-12.2)
[2017-05-31 12:53] LABS: BLOOD UREA NITROGEN 11 mg/dL (7-17); CREATININE 0.8 mg/dL (0.52-1.04); EST GLOMERULAR FILTRATION RATE > 60 ml/min; GLUCOSE,RANDOM 105 mg/dL (70-110)
--- NOTE | 2017-05-31 14:46 | Emergency Department Record ---
History of Present Illness - General Chief Complaint: Shortness of breath Stated Complaint: LIZ Time Seen by Provider: 05/31/17 12:11 Source: Patient Mode of Arrival: Wheelchair Limitations: No limitations - History of Present Illness Initial Comments: pt has been increasinly sob. no fevers or addl symptoms. MD Complaint: Shortness of breath Onset/Timin -: Week(s) Improves With: Bronchodilators, Oxygen Worsens With: Exertion, Movement Known History Of: COPD, Recurrent pneumonia Context: Occurred during exertion Associated Symptoms: Cough Treatments Prior to Arrival: Bronchodilator, Oxygen Treatment Prior to Arrival Comment:: yesica tx at 0800 - Related Data Home Oxygen Therapy: Yes Home Oxygen Amount: 2 Liters Home Medications Medication Instructions Recorded Confirmed Last Taken Aspirin 81 mg PO DAILY 05/04/17 05/31/17 05/30/17 Hydrochlorothiazide 1 tab PO DAILY 05/31/17 05/31/17 05/31/17 Previous Rx's Medication Instructions Recorded Albuterol Sulfate [Proair Hfa] 1 - 2 puff IH .EVERY 4-6 HOURS PRN 11/14/16 #1 inhaler Calcium Carbonate [Tums] 500 mg PO Q4H PRN #0 tab.chew 11/14/16 Ipratropium/Albuterol [Duoneb] 3 ml INH RESP.Q4H.WA #30 ampul.neb 01/03/17 Prednisone [Prednisone 20Mg] 20 mg PO BIDPC #8 tab 05/31/17 Allergies Allergy/AdvReac Type Severity Reaction Status Date / Time lisinopril Allergy Unknown CONGESTION Verified 05/31/17 12:28 Travel Screening - Travel/Exposure Within Last 30 Days Have you traveled within the last 30 days?: No - Travel/Exposure Within Last Year Have you traveled outside the [place] in the last year?: No - Additonal Travel Details Have you been exposed to anyone with a communicable illness?: No Review of Systems Reviewed: No additional complaints except as noted below Constitutional: Reports: As per HPI. Denies: Chills, Fever, Malaise, Night sweats, Weakness, Weight change Eyes: Reports: As per HPI. Denies: Eye discharge, Eye pain, Photophobia, Vision change ENT: Reports: As per HPI. Denies: Congestion, Dental pain, Ear pain, Epistaxis , Hearing loss, Throat pain Respiratory: Reports: As per HPI. Denies: Cough, Dyspnea, Hemoptysis, Stridor, Wheezes Cardiovascular: Reports: As per HPI. Denies: Arrhythmia, Chest pain, Dyspnea on exertion, Edema, Murmurs, Orthopnea, Palpitations, Paroxysmal nocturnal dyspnea, Rheumatic Fever, Syncope Endocrine: Reports: As per HPI. Denies: Fatigue, Heat or cold intolerance, Polydipsia, Polyuria Gastrointestinal: Reports: As per HPI. Denies: Abdominal pain, Constipation, Diarrhea, Hematemesis, Hematochezia, Melena, Nausea, Vomiting Genitourinary: Reports: As per HPI. Denies: Abnormal menses, Discharge, Dyspareunia, Dysuria, Frequency, Hematuria, Incontinence, Retention, Urgency Musculoskeletal: Reports: As per HPI. Denies: Arthralgia, Back pain, Gout, Joint swelling, Myalgia, Neck pain Skin: Reports: As per HPI. Denies: Bruising, Change in color, Change in hair/ nails, Lesions, Pruritus, Rash Neurological: Reports: As per HPI. Denies: Abnormal gait, Confusion, Headache, Numbness, Paresthesias, Seizure, Tingling, Tremors, Vertigo, Weakness Psychiatric: Reports: As per HPI. Denies: Anxiety, Auditory hallucinations, Depression, Homicidal thoughts, Suicidal thoughts, Visual hallucinations Hematological/Lymphatic: Reports: As per HPI. Denies: Anemia, Blood Clots, Easy bleeding, Easy bruising, Swollen glands Past Medical History - SOCIAL HISTORY Smoking Status: Former smoker Alcohol Use: None Drug Use: None - RESPIRATORY Hx Respiratory Disorders: Yes Hx COPD: Yes Hx Dyspnea: Yes Hx Pneumonia: Yes Hx Sleep Apnea: Yes (narcolepsy) - CARDIOVASCULAR Hx Cardio Disorders: Yes Hx Hypertension: Yes Comment:: hypercholesteremia, AAA - NEURO Hx Neuro Disorders: No Comment:: "memory issues" per daughter - GI Hx GI Disorders: Yes Hx Reflux: Yes Comment:: abdominal aneurysm - Hx Genitourinary Disorders: Yes Hx Bladder Problem: Yes (cancer) - ENDOCRINE Hx Endocrine Disorders: No Hx Diabetes: No Hx Thyroid Disease: No - MUSCULOSKELETAL Hx Musculoskeletal Disorders: Yes Hx Arthritis: Yes Comment:: hx fracture wrist - PSYCH Hx Psych Problems: No - HEMATOLOGY/ONCOLOGY Hx Hematology/Oncology Disorders: Yes Hx Cancer: Yes (bladder 2010 approx) Hx Blood Transfusions: Yes Hx Blood Transfusion Reaction: No Family Medical History Any Significant Family History?: Yes Hx Cancer: Mother, Children, Brother/Sister Hx Resp Disorders: Children Physical Exam - General General Appearance: Alert, Oriented x3, Cooperative, Mild distress - Head Head exam: Normal inspection - Eye Eye exam: Normal appearance, PERRL, EOMI Pupils: Normal accommodation - ENT ENT exam: Normal exam, Mucous membranes moist, Normal external ear exam, Normal orophraynx Ear exam: Normal external inspection. negative: External canal tenderness Nasal Exam: Normal inspection. negative: Discharge, Sinus tenderness Mouth exam: Normal external inspection, Tongue normal Teeth exam: Normal inspection. negative: Dental caries Throat exam: Normal inspection. negative: Tonsillar erythema, Tonsillar exudate - Neck Neck exam: Normal inspection, Full ROM. negative: Tenderness - Respiratory Respiratory exam: Respiratory distress, Wheezes - Cardiovascular Cardiovascular Exam: Regular rate, Normal rhythm, Normal heart sounds - GI/Abdominal GI/Abdominal exam: Soft, Normal bowel sounds. negative: Tenderness - Rectal Rectal exam: Deferred - exam: Deferred - Extremities Extremities exam: Normal inspection, Full ROM, Normal capillary refill. negative: Tenderness - Back Back exam: Reports: Normal inspection, Full ROM. Denies: Muscle spasm, Rash noted, Tenderness - Neurological Neurological exam: Alert, CN II-XII intact, Normal gait, Oriented X3 - Psychiatric Psychiatric exam: Normal affect, Normal mood - Skin Skin exam: Dry, Intact, Normal color, Warm Course Vital Signs 05/31/17 05/31/17 05/31/17 11:49 12:29 13:28 Temperature 98.1 F Pulse Rate 86 87 Pulse Rate [ 78 Left Brachial] Respiratory 20 18 20 Rate Blood Pressure 202/106 Blood Pressure 114/64 [Left Arm] Pulse Ox 98 97 98 - Reevaluation(s) Reevaluation #1: 05/31/17 14:43 pt feels much better. bp much better Medical Decision Making - Lab Data Result diagrams: 05/31/17 12:30 05/31/17 12:30 Lab Results 05/31/17 05/31/17 Range/Units 12:30 12:30 WBC 3.9 L (4.2-12.2) K/uL RBC 4.14 (3.80-5.40) M/uL Hgb 11.7 (11.6-16.0) gm/dl Hct 33.9 L (35.0-47.0) % MCV 81.9 (81-97) fl MCH 28.3 (27-33) pg MCHC 34.5 (32-36) g/dl RDW 14.5 (11.5-14.5) % Plt Count 143 (130-400) K/uL MPV 9.7 (7.4-10.4) fl Neutrophils % 52.0 (47-80) % Eosinophils % Not Reportable Basophils % Not Reportable Lymphocytes 30.0 (16-45) % Monocytes 8.0 (0-9) % Eosinophil Count 10.0 H (0-6) % Sodium 131 L (136-145) mmol/L Potassium 3.7 (3.5-5.1) mmol/L Chloride 92 L (98-107) mmol/L Carbon Dioxide 32.0 H (22-30) mmol/L Anion Gap 7.0 (7-16) BUN 11 (7-17) mg/dL Creatinine 0.8 (0.52-1.04) mg/dL Estimated GFR > 60 ml/min Random Glucose 105 (70-110) mg/dL Calcium 9.1 (8.5-10.1) mg/dL NT-Pro-B Natriuret Pep 352.00 (<450) pg/mL Disposition Disposition: Discharge Clinical Impression: COPD exacerbation Disposition: Home, Self-Care Condition: (1) Good Instructions: COPD (Chronic Obstructive Pulmonary Disease) (ED) Additional Instructions: follow up with family doctor. return sooner if worse. Prescriptions: Prednisone [Prednisone 20Mg] 20 mg PO BIDPC #8 tab Forms: Patient Portal Access Quality - Quality Measures Quality Measures: N/A - Blood Pressure Screening Blood Pressure Classification: Hypertensive Reading Systolic Measurement: 202 Diastolic Measurement: 106 Screening for High Blood Pressure: < First Hypertensive BP, F/U Documented > [ [id number]] First Hypertensive Follow-up Interventions: Follow-up with rescreen GT 1 day and LT 4 weeks.
--- NOTE | 2017-06-02 08:50 | RADIOLOGY REPORT ---
EXAM: CHEST, TWO VIEWS HISTORY: COPD, OXYGEN DEPENDENT, DIFFICULTY BREATHING. TECHNIQUE: Two views of the chest were obtained. Comparison: Chest x-ray 05/03/17. FINDINGS: The lungs are hyperinflated with upper lobe lucency consistent with emphysema. Biapical pleural thickening consistent with scarring. The lungs are clear. The cardiac silhouette is not enlarged. The diaphragm is flattened. Osteopenia. IMPRESSION: EMPHYSEMA WITH BIAPICAL SCARRING. NO ACUTE INTRATHORACIC PROCESS WITH NO CHANGE. JOB NUMBER: [id number] [facility]
== END 2017-05-31 15:02 | disposition home or self-care (01) ==
LOC: ER 11:41
DX: J44.1 Chronic obstructive pulmonary disease with (acute) exacerbation (principal); I10 Essential (primary) hypertension; Z87.891 Personal history of nicotine dependence
CPT/HCPCS: 71020; 80048; 83880; 85027; 94640; 96374; 99284; J2930

== ENCOUNTER 2017-08-27 19:56 | Inpatient (IN) | payer MEDICARE, SELFPAY ==
[2017-08-27] MEDS ORDERED: ACETAMINOPHEN 500 MG TABLET PO ONE (20:06)
--- NOTE | 2017-08-27 20:08 | Emergency Department Record ---
History of Present Illness - General Chief complaint: Weakness Stated complaint: CONFUSION Source: Patient, Family, EMS Mode of Arrival: EMS Limitations: Altered mental status - History of Present Illness Initial comments: 82 yo female presents to ED for evaluation of fever, confusion, and "dark urine " per family at the patient's bedside. Patient reports wet cough as well, reports that she has been feeling weak today, reports worsening cough that began yesterday per family. Family is concerned about possible UTI resulting in confusion. Family reports a history of COPD and a AAA that is being monitored at this point. MD Complaint: Generalized weakness -: Days(s) Location: Generalized Severity: Moderate Consistency: Constant Improves with: None Worsens with: None Context: Recent illness Associated Symptoms: Confusion, Fever/chills, Shortness of breath - Norma Coma Scale Eye Response: (4) Open spontaneously Motor Response: (6) Obeys commands Verbal Response: (5) Oriented [place] Total: 15 - Related Data Previous Rx's Medication Instructions Recorded Albuterol Sulfate [Proair Hfa] 1 - 2 puff IH .EVERY 4-6 HOURS PRN 11/14/16 #1 inhaler Calcium Carbonate [Tums] 500 mg PO Q4H PRN #0 tab.chew 11/14/16 Ipratropium/Albuterol [Duoneb] 3 ml INH RESP.Q4H.WA #30 ampul.neb 01/03/17 Allergies Allergy/AdvReac Type Severity Reaction Status Date / Time lisinopril Allergy Unknown CONGESTION Unverified 07/21/17 10:53 Review of Systems ROS unobtainable: Due to mental status Constitutional: Reports: Fever Respiratory: Reports: Cough Genitourinary: Reports: Other ("dark urine") Neurological: Reports: Weakness Past Medical History - SOCIAL HISTORY Smoking Status: Former smoker Drug Use: None - RESPIRATORY Hx Respiratory Disorders: Yes Hx COPD: Yes Hx Dyspnea: Yes Hx Pneumonia: Yes Hx Sleep Apnea: Yes (narcolepsy) - CARDIOVASCULAR Hx Cardio Disorders: Yes Hx Hypertension: Yes Comment:: hypercholesteremia, AAA - NEURO Hx Neuro Disorders: No Comment:: "memory issues" per daughter - GI Hx GI Disorders: Yes Hx Reflux: Yes Comment:: abdominal aneurysm - Hx Genitourinary Disorders: Yes Hx Bladder Problem: Yes (cancer) - ENDOCRINE Hx Endocrine Disorders: No Hx Diabetes: No Hx Thyroid Disease: No - MUSCULOSKELETAL Hx Musculoskeletal Disorders: Yes Hx Arthritis: Yes Comment:: hx fracture wrist - PSYCH Hx Psych Problems: No - HEMATOLOGY/ONCOLOGY Hx Hematology/Oncology Disorders: Yes Hx Cancer: Yes (bladder 2010 approx) Hx Blood Transfusions: Yes Hx Blood Transfusion Reaction: No Family Medical History Hx Cancer: Mother, Children, Brother/Sister Hx Resp Disorders: Children Physical Exam - General General Appearance: Alert, Cooperative, Mild distress, Other (AO x 2, looks to family for many answers) Limitations: Altered mental status - Head Head exam: Atraumatic, Normocephalic, Normal inspection Head exam detail: negative: Abrasion, Contusion, Willard's sign, General tenderness, Hematoma, Laceration - Eye Eye exam: Normal appearance. negative: Conjunctival injection, Periorbital swelling, Periorbital tenderness, Scleral icterus - ENT Ear exam: negative: Auricular hematoma, Auricular trauma Nasal Exam: negative: Active bleeding, Discharge, Dried blood, Foreign body Mouth exam: negative: Drooling, Laceration, Muffled voice, Tongue elevation - Neck Neck exam: Normal inspection. negative: Meningismus, Tenderness - Respiratory Respiratory exam: Normal lung sounds bilaterally, Rhonchi. negative: Rales, Respiratory distress, Stridor - Cardiovascular Cardiovascular Exam: Normal rhythm, Normal heart sounds, Tachycardia - GI/Abdominal GI/Abdominal exam: Soft. negative: Rebound, Rigid, Tenderness - Rectal Rectal exam: Deferred - exam: Deferred - Extremities Extremities exam: Normal inspection. negative: Pedal edema, Tenderness - Back Back exam: Denies: CVA tenderness (R), CVA tenderness (L) - Neurological Neurological exam: Alert, CN II-XII intact. negative: Motor sensory deficit - Skin Skin exam: Normal color. negative: Abrasion Type of lesion: negative: abrasion Course Vital Signs 08/27/17 20:01 Temperature 99.0 F Pulse Rate [ 104 H Pulse Ox Probe] Respiratory 24 Rate Blood Pressure 157/79 [Left Arm] Pulse Ox 98 - Reevaluation(s) Reevaluation #1: 08/27/17 20:14 EKG: SInus tachycardia 101 Normal axis, normal intervals No acute ST-T wave changes Unchanged from 05/03/17 Reevaluation #2: 08/27/17 20:50 Labs reviewed, WBC 8.9, 89% Neutrophils. UA/Lactic acid pending. CXR: Emphysema, no acute process. Reevaluation #3: 08/27/17 21:47 UA negative for infection, Lactic acid 1.0. Will treat for possible CAP given elevated temperature and neutrophil shift. Will admit for further evaluation. Medical Decision Making - Lab Data Result diagrams: 08/27/17 19:50 08/27/17 19:50 Disposition Disposition: Admit Clinical Impression: Fever Qualifiers: Fever type: unspecified Qualified Code(s): R50.9 - Fever, unspecified CAP (community acquired pneumonia) Qualifiers: Laterality: unspecified laterality Qualified Code(s): J18.9 - Pneumonia, unspecified organism Disposition: Still a Patient at [facility] Decision to Admit: Admit from ER Decision to Admit Date: 08/27/17 Decision to Admit Time: 21:49 Condition: (2) Stable Time of Disposition: 21:50 Quality - Quality Measures Quality Measures: N/A - Blood Pressure Screening Does Patient Have Any of the Following: Active Dx of HTN Blood Pressure Classification: Hypertensive Reading Systolic Measurement: 157 Diastolic Measurement: 79 Screening for High Blood Pressure: Patient Exclusion, Hx of HTN [G9744]
[2017-08-27] MEDS ORDERED: 0.9 % SODIUM CHLORIDE 1000ML 1,000 ML IV SCH (20:15)
[2017-08-27 20:22] LABS: BASO % 0.1 % (0-6); EOS % 1.1 % (0-6); HEMATOCRIT 33.7 % (35.0-47.0); HEMOGLOBIN 11.1 gm/dl (11.6-16.0); LYMPH % 8.5 % (16-45); MEAN CELL VOLUME 83.8 fl (81-97); MEAN CORPUSCULAR HEMOGLOBIN 27.6 pg (27-33); MEAN CORPUSCULAR HGB CONC 32.9 g/dl (32-36); MEAN PLATELET VOLUME 11.2 fl (7.4-10.4); MONO % 4.1 % (0-9); PLATELET COUNT 133 K/uL (130-400); RED BLOOD COUNT 4.02 M/uL (3.80-5.40); WHITE BLOOD COUNT W/O DIFF 8.9 K/uL (4.2-12.2)
[2017-08-27 20:42] LABS: PLATELET ESTIMATE NORMAL (NORMAL)
[2017-08-27 20:44] LABS: ALB/GLOB RATIO 1.4 (1.1-1.8); ALBUMIN 4.2 g/dL (4.0-5.0); ALKALINE PHOSPHATASE 70 U/L (35-104); ALT/SGPT 6 U/L (<33); AST/SGOT 16 U/L (10.0-35.0); BLOOD UREA NITROGEN 9 mg/dL (8-23); CREATININE 0.8 mg/dL (0.5-0.9); EST GLOMERULAR FILTRATION RATE > 60 mL/min; GLUCOSE,RANDOM 133 mg/dL (74-109); TOTAL PROTEIN 7.1 g/dL (6.6-8.7)
[2017-08-27 21:43] LABS: URINE APPEARANCE CLEAR; URINE BILIRUBIN NEGATIVE (NEGATIVE); URINE BLOOD NEGATIVE (NEGATIVE); URINE COLOR YELLOW; URINE GLUCOSE (UA) NEGATIVE (NEGATIVE); URINE KETONE NEGATIVE (NEGATIVE); URINE LEUKOCYTE ESTERASE NEGATIVE (NEGATIVE); URINE NITRITE NEGATIVE (NEGATIVE); URINE PROTEIN TRACE (NEGATIVE); URINE UROBILINOGEN 0.2 E.U./dL (0.20 - 1.00)
[2017-08-27 21:47] LABS: URINE RBC 0 - 2 (NONE SEEN); URINE WBC 0 - 2 (0-2/hpf)
[2017-08-27] MEDS ORDERED: CEFTRIAXONE SODIUM 1 GM in 0.9 % SODIUM CHLORIDE 100ML 100 ML IVPB ONE (21:53)
[2017-08-28] MEDS ORDERED: ACETAMINOPHEN 500 MG TABLET PO PRN (00:08)
[2017-08-28] MEDS ORDERED: GUAIFENESIN 600 MG TABCR PO PRN (00:08)
[2017-08-28] MEDS ORDERED: ALBUTEROL SULFATE (0.083%) 2.5 MG/3 ML NEB INH PRN (00:08)
[2017-08-28] MEDS ORDERED: 0.9 % SODIUM CHLORIDE 1000ML 1,000 ML IV PRN (00:08)
[2017-08-28] MEDS: IPRATROPIUM/ALBUTEROL (0.5MG/3MG) NEB INH SCH ×6 (00:55→21:23)
[2017-08-28] MEDS: BUDESONIDE 0.5 MG/2 ML INH SCH ×3 (00:55→21:23)
[2017-08-28] MEDS ORDERED: AZITHROMYCIN 500 MG in 0.9 % SODIUM CHLORIDE 250ML 250 ML IVPB SCH (02:00)
--- NOTE | 2017-08-28 07:01 | History & Physical ---
History of Present Illness - Date of Service Date of Service for History & Physical: 08/28/17 - History of Present Illness Admitting Diagnosis: Fever. Altered Mental Status. CAP History of Present Illness: Ms. Garcia is an 82 y/o female brought in by her family after having complaint of fever/chills, weakness and a wet cough. She is a patient in the family practice here at [facility] and has been on a 6 weeks course of zithromax for chronic bronchitis. The patients daughter says she visited with her mom yesterday afternoon and noted her to be very confused, weak, tremulous and desaturating in the 80's. She is on 2 liters oxygen at home and uses a nebulizer as needed none of which improved her symptoms yesterday. The patient has recently returned from [place] visiting her son and says that she is up to date with her influenza and pneumonia vaccine. She has not had any chest pain, palpitations, headaches, nausea or vomiting. The patient's daughter is also very concerned about her mom living alone and her functionality while alone. She does visit frequently but does think a visiting nurse would be helpful. Travel Screening - Travel/Exposure Within Last 30 Days Have you traveled within the last 30 days?: Yes Location Detail:: [facility] - Travel/Exposure Within Last Year Have you traveled outside the [place] in the last year?: No - Additonal Travel Details Have you been exposed to anyone with a communicable illness?: No - Travel Symptoms Symptom Screening: None Review of Systems Constitutional: Reports: Fever Respiratory: Reports: Cough Genitourinary: Reports: Other ("dark urine") Neurological: Reports: Weakness Past Medical History - SOCIAL HISTORY Smoking Status: Former smoker Drug Use: None - RESPIRATORY Hx Respiratory Disorders: Yes Hx COPD: Yes Hx Dyspnea: Yes Hx Pneumonia: Yes Hx Sleep Apnea: Yes (narcolepsy) - CARDIOVASCULAR Hx Cardio Disorders: Yes Hx Hypertension: Yes Comment:: hypercholesteremia, AAA - NEURO Hx Neuro Disorders: No Comment:: "memory issues" per daughter - GI Hx GI Disorders: Yes Hx Reflux: Yes Comment:: abdominal aneurysm - Hx Genitourinary Disorders: Yes Hx Bladder Problem: Yes (cancer) - ENDOCRINE Hx Endocrine Disorders: No Hx Diabetes: No Hx Thyroid Disease: No - MUSCULOSKELETAL Hx Musculoskeletal Disorders: Yes Hx Arthritis: Yes Comment:: hx fracture wrist - PSYCH Hx Psych Problems: No - HEMATOLOGY/ONCOLOGY Hx Hematology/Oncology Disorders: Yes Hx Cancer: Yes (bladder 2009 approx) Hx Blood Transfusions: Yes Hx Blood Transfusion Reaction: No Family Medical History Hx Cancer: Mother, Children, Brother/Sister Hx Resp Disorders: Children H&P Meds/Allergies - Allergies Allergies: Allergies Allergy/AdvReac Type Severity Reaction Status Date / Time lisinopril Allergy Unknown CONGESTION Unverified 07/21/17 10:53 - Home Medications Previous Rx's Medication Instructions Recorded Albuterol Sulfate [Proair Hfa] 1 - 2 puff IH .EVERY 4-6 HOURS PRN 11/14/16 #1 inhaler Calcium Carbonate [Tums] 500 mg PO Q4H PRN #0 tab.chew 11/14/16 Ipratropium/Albuterol [Duoneb] 3 ml INH RESP.Q4H.PA #30 ampul.neb 01/03/17 - Active Medications Active Medications: Current Medications Acetaminophen (Tylenol 500mg Tab) 1,000 mg PO Q6H PRN PRN Reason: PAIN/TEMP Albuterol Sulfate () 2.5 mg INH RESP.Q2H PRN PRN Reason: DIFFICULTY IN BREATHING Albuterol/Ipratropium (Duoneb) 3 ml INH RESP.Q4H.[facility] Last Admin: 08/28/17 06:13 Dose: 3 ml Aspirin (Aspirin Chewable) 81 mg PO DAILY [facility] Budesonide (Pulmicort) 0.5 mg INH BID [facility] Last Admin: 08/28/17 00:55 Dose: 0.5 mg Guaifenesin (Mucinex) 600 mg PO BID PRN PRN Reason: COUGH Sodium Chloride () 1,000 mls @ 125 mls/hr IV .Q8H PRN PRN Reason: LARGE VOLUME IV Last Admin: 08/28/17 01:32 Dose: 125 mls/hr Azithromycin 500 mg/ Sodium (Chloride) 250 mls @ 250 mls/hr IVPB 0200 [facility] Stop: 09/02/17 02:01 Last Infusion: 08/28/17 02:36 Dose: Infused Ceftriaxone Sodium 1 gm/ (Sodium Chloride) 100 mls @ 100 mls/hr IVPB 2200 [facility] Stop: 09/02/17 22:01 Simvastatin (Zocor) 10 mg PO QHS [facility] Physical Exam - Vital Signs Vital Signs: Vital Signs - Last 24 Hrs Temp Pulse Pulse Resp BP Pulse Ox 08/28/17 06:13 93 H 20 100 08/28/17 01:46 18 08/28/17 01:00 85 18 100 08/28/17 00:08 98.2 F 90 20 128/62 94 L - General General Appearance: Alert, Cooperative, Mild distress, Other (AO x 2, looks to family for many answers) Limitations: Altered mental status - Head Head exam: Atraumatic, Normocephalic, Normal inspection Head exam detail: negative: Abrasion, Contusion, Willard's sign, General tenderness, Hematoma, Laceration - Eye Eye exam: Normal appearance. negative: Conjunctival injection, Periorbital swelling, Periorbital tenderness, Scleral icterus - ENT Ear exam: negative: Auricular hematoma, Auricular trauma Nasal Exam: negative: Active bleeding, Discharge, Dried blood, Foreign body Mouth exam: negative: Drooling, Laceration, Muffled voice, Tongue elevation - Neck Neck exam: Normal inspection. negative: Meningismus, Tenderness - Respiratory Respiratory exam: Normal lung sounds bilaterally, Rhonchi. negative: Rales, Respiratory distress, Stridor - Cardiovascular Cardiovascular Exam: Normal rhythm, Normal heart sounds, Tachycardia - GI/Abdominal GI/Abdominal exam: Soft. negative: Rebound, Rigid, Tenderness - Rectal Rectal exam: Deferred - exam: Deferred - Extremities Extremities exam: Normal inspection. negative: Pedal edema, Tenderness - Back Back exam: Denies: CVA tenderness (R), CVA tenderness (L) - Neurological Neurological exam: Alert, CN II-XII intact. negative: Motor sensory deficit - Skin Skin exam: Normal color. negative: Abrasion Type of lesion: negative: abrasion Results - Labs Result Diagrams: 08/27/17 19:50 08/27/17 19:50 VTE H&P Assessment - Risk for VTE Risk for VTE: Yes Risk Level: Moderate Risk Assessment Date: 08/28/17 Risk Assessment Time: 09:00 VTE Orders Placed or Will Be Placed: Yes Plan - Inpatient Certification Inpatient Certification: Admit to inpatient care: Based on my medical assessment, after consideration of patient's risk factors (age, co-morbidities and patient presenting symptoms and acuity), I expect that this patient will remain in the hospital greater than or equal to two midnights and that the services needed warrant inpatient care because: Patient Risk Factors: Fall Estimated length of stay: [72 hrs] The patient may reasonably be expected to be discharged or transferred to a hospital within 96 hours after admission to [facility]. Services needed: PT/OT Post hospital care (if known): Home nursing/detention facility I certify that my determination is in accordance with my understanding of Medicare requirements for reasonable and necessary inpatient services. - Detailed Diagnosis and Plan (1) CAP (community acquired pneumonia) Plan: - CXR- no infiltrates/opacites, no acute process. UA negative, WBC 8.9, tachycardia 100 bpm - CURB 65 score - 2 (moderate severity), pt has been on 6 week course of macrolide. - on Azithromycin/Ceftriaxone IV, change to PO Levaquin today. Hydration w/ IV Nacl 0.9% @ 75mL/hr, Tylenol PRN - oxygen to keep sats > 92%, update pneumonia vaccines. 08/28/17 10:42 Current Visit: Yes Status: Acute Qualifiers: Laterality: unspecified laterality Qualified Code(s): J18.9 - Pneumonia, unspecified organism Base Code: J18.9 - PNEUMONIA, UNSPECIFIED ORGANISM (2) COPD exacerbation Plan: - CXR - negative for infiltrates/opacities. - cont with duoneb Q4H, Albuterol Q2H PRN, on IV abx for presumptive dx of CAP - maintain sats > 92%, elevate head of bed 30 deg, check peak flow. Tele monitor on. - chest PT if possible, pulmonary rehab on d/c - pneumo/flu vaccines up to date. Current Visit: No Status: Acute Base Code: J44.1 - CHRONIC OBSTRUCTIVE PULMONARY DISEASE W (ACUTE) EXACERBATION (3) Code status needs review Plan: Discussed with pt's daughter and she will talk with her mother and let us know. Current Visit: No Status: Acute Base Code: [id number] - (4) DVT prophylaxis Plan: Lovenox 40mg QD Current Visit: No Status: Acute Base Code: [id number] - Comment: 01/03/17: patient considered high risk with age and restricted mobility -lovenox 40mg sq daily for prophylaxis was given (5) Debility Plan: - pt has limited mobility due to COPD and chronic back issues. Family is concerned about home environment. - PT/OT consult for evaluation and treatment. - SW to follow on Thursday for home visiting nurse. Current Visit: Yes Status: Acute Base Code: R53.81 - OTHER MALAISE - Disposition Patient admitted for further monitoring over the weekend. PT/OT SW review pending.
--- NOTE | 2017-08-28 07:26 | RADIOLOGY REPORT ---
EXAM: CHEST, TWO VIEWS HISTORY: CHEST PAIN. TECHNIQUE: Frontal and lateral views of the chest were obtained. Comparison: 07/21/17 chest. FINDINGS: The heart size is normal. There is underlying emphysema. Osteopenia. Biapical pleural thickening. Areas of probable bronchiectasis and scarring in the upper lobes bilaterally, unchanged. The lungs are otherwise clear. IMPRESSION: UNDERLYING EMPHYSEMA WITH BIAPICAL PLEURAL THICKENING AND PROBABLE ADJACENT SCARRING WITH BRONCHIECTASIS. JOB NUMBER: [id number] [facility]
[2017-08-28] MEDS ORDERED: 0.9 % SODIUM CHLORIDE 1,000 ML BAG IV SCH (09:15)
[2017-08-28] MEDS: ASPIRIN 81 MG CHEWABLE TABLET PO SCH (10:36)
[2017-08-28] MEDS ORDERED: LEVOFLOXACIN 500 MG TABLET PO ONE (11:12)
--- NOTE | 2017-08-28 13:32 | Rehab Evaluation ---
Patient Information - Patient Information Diagnosis: fever, altered mental status Ordered Treatment: PT Evaluate and Treat Status: Initial Evaluation History: Detail (The patient presented in ED with complaints of fever and chills.) Past Medical/Surgical Hx: PAST MEDICAL/SURGICAL HISTORY Past Surgical History bladder appendectomy partial hysterectomy PMH - Respiratory Hx Respiratory Disorders Yes Hx Chronic Obstructive Yes Pulmonary Disease (COPD) Hx Dyspnea Yes Hx Pneumonia Yes Hx Sleep Apnea Yes: narcolepsy PMH - Cardiovascular Hx Cardiovascular Disorders Yes Hx Hypertension Yes Comment: hypercholesteremia, AAA PMH - Neuro Hx Neurological Disorders No Comment: "memory issues" per daughter PMH - GI Hx Gastrointestinal Disorders Yes Hx Gastroesophageal Reflux Yes Comment: abdominal aneurysm PMH - Hx Genitourinary Disorders Yes Hx Bladder Problem Yes: cancer PMH - Endocrine Hx Endocrine Disorders No Hx Diabetes No Hx Thyroid Disease No PMH - Musculoskeletal Hx Musculoskeletal Disorders Yes Hx Arthritis Yes Comment: hx fracture wrist PMH - Psych Hx Psychiatric Problems No PMH - Hematology/Oncology Hx Hematology/Oncology Yes Disorders Hx Cancer Yes: bladder 2010 approx Hx Blood Transfusion Reaction No Premorbid Status: Detail (The patient was ambulating without device and using 4 wheeled walker with a seat when ambulating distances . 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 The patient's bathroom is equipped with a tub/shower combination with a tub chair and grab bars, a standard toilet with grab bars. The patient has home O2, a 4 wheeled walker with a seat.) Precautions: [place], Fall - Time With Patient Total Time Spent With Patient (Min): 30 Treatment Procedures: Detail (Initial Evaluation.) Subjective Information - Subjective Information Per Patient (The patient had complaints of R shoulder pain with UE testing. The patient complained of shortness of breath with ambulation but stated this was usual for her.) Objective Data - Mental Status Patient Orientation: Person, Place (The patient was aware of place, birthdate but did not know age or current year.) - Visual Perception Appears within normal limits for therapeutic activities - ROM Within normal limits (LE AROM was WNL. Refer to OT not for UE AROM.) - Strength/Tone Not within normal limits (The patient's LE strength was hip flexors, extensors, adductors R 4/5, L 4-/5, B hip abductors 4/5, knee and ankle musculature 4+/5.) - Bed Mobility Independent (The patient was independent with supine to and from sit transfer and scooting up in bed.) - Transfers Independent (The patient was independent with sit to and from stand transfer with cueing to push up from surface and not walker.) - Balance Balance Sitting: Good Balance Standing: Fair (The patient required walker for support.) - Gait Detail (The patient ambulated with CG of 1 with wheeled walker with 2L of O2 a distance of 22 feet x 1. The patient exhibited shortness of breath with ambulation and was able to purse lip breath when cued.) Therapy Assessment - Therapy Assessment Detail (The patient had shortness of breath with activity and limited ambulation distance. The patient's balance in standing was fair and decreased LE strength was noted R side greater then R. Feel the patient would benefit from short term Rehab in a home or subacute setting to improve her ability to complete sustained physical activities and to improve balance and ambulation distance to household distances without shortness of breath.) Problem List - Problem List Physical Therapy Problem List: Detail (1) Decreased LE strength 2) Shortness of breath with ambulation 3) Decreased ability to complete sustained physical activity 4) Decreased standing balance) Goals - Goals Physical Therapy Goals: 1) The patient will ambulate with assistive device independently a distance of 100 feet x 1. 2) The patient will tolerate 30 minutes of physical activity with minimal shortness of breath and 1 to 2 rest periods. 3) Assess the patient's balance using the Tinetti Assessment Tool. 4 ) Increase LE strength 1/3 muscle grade in weakened muscles. Prognosis - Prognosis Good Plan - Plan Physical Therapy Plan: PT 1-2 times a day for gait training, LE strengthening and balance exercises.
--- NOTE | 2017-08-28 13:33 | Rehab Evaluation ---
Patient Information - Patient Information Diagnosis: Fever, altered mental status, CAP Ordered Treatment: OT Evaluate and Treat Status: Initial Evaluation Surgery: No History: Detail (Please see intake from) Past Medical/Surgical Hx: PAST MEDICAL/SURGICAL HISTORY Past Surgical History bladder appendectomy partial hysterectomy PMH - Respiratory Hx Respiratory Disorders Yes Hx Chronic Obstructive Yes Pulmonary Disease (COPD) Hx Dyspnea Yes Hx Pneumonia Yes Hx Sleep Apnea Yes: narcolepsy PMH - Cardiovascular Hx Cardiovascular Disorders Yes Hx Hypertension Yes Comment: hypercholesteremia, AAA PMH - Neuro Hx Neurological Disorders No Comment: "memory issues" per daughter PMH - GI Hx Gastrointestinal Disorders Yes Hx Gastroesophageal Reflux Yes Comment: abdominal aneurysm PMH - Hx Genitourinary Disorders Yes Hx Bladder Problem Yes: cancer PMH - Endocrine Hx Endocrine Disorders No Hx Diabetes No Hx Thyroid Disease No PMH - Musculoskeletal Hx Musculoskeletal Disorders Yes Hx Arthritis Yes Comment: hx fracture wrist PMH - Psych Hx Psychiatric Problems No PMH - Hematology/Oncology Hx Hematology/Oncology Yes Disorders Hx Cancer Yes: bladder 2010 approx Hx Blood Transfusion Reaction No Premorbid Status: Detail (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 She was ambulating w/o device within her apartment and uses 4WW w/ seat for ambulating to get mail or in hallways of apartment building.) Social History: Detail (Pt lives alone in first floor apartment. No steps to enter apartment. She has a tub/shower combo w/ tub bench and curtain enclosure. Shower is complete w/ hand held shower head and grab bars. Pt usually sits to shower. She has standard toilet w/ grab bars. No other AD for ADLs. Daughter does patient's grocery shopping and will make occasional meals, otherwise pt is independent w/ ADLs. Pt reports doing her own laundry independently.) Precautions: [place], Fall - Time With Patient Total Time Spent With Patient (Min): 20 (Eval completed w/ PT present) Treatment Procedures: Detail (eval LOW OT) Subjective Information - Subjective Information Per Patient Objective Data - Pain Pain Present: Yes (Right shoulder w/ movement) - Mental Status Patient Orientation: Person, Place - Visual Perception Appears within normal limits for therapeutic activities (Pt wears glasses) - ROM Not within normal limits (Pain w/ ROM for R shld w/ tenderness upon palpation to LH of biceps tendon. Right shld ROM more limited due to pain compared to Left. Right shld flex and abd to ~100 deg. WNL for elbow flex and ext. Left shld flex and abd ~ 135-140 deg. WNL for elbow flex and ext.) - Strength/Tone Not within normal limits (Weakness in biju UE's w/ Right worse then left. Right : shld flex, abd = 3+/5; shld add 4/5, elbow flex/ext not tested due to IV. Left : shld flex, abd, elbow flex, elbow ext = 3+/5; shld add 4/5. Biju weakened gross grasp.) - Coordination Appears within normal limits for therapeutic activities - Bed Mobility Independent - Transfers Independent, Needs Assist (SBA for safety) - Balance Balance Sitting: Fair (Posterior lean to support biju shld overhead ROM.) - ADL's/IADL's Detail (Pt reports that she has been toileting independently w/in room w/ nsg SBA. No difficulty completing don/doff socks independently.) Therapy Assessment - Therapy Assessment Detail (Pt presents with generalized weakness Biju UE's and decreased endurance for tasks. Patient has pain in R shld since current onset of symptoms. She shows good independence w/ ADLs but with increased SOB.) Problem List - Problem List Occupational Therapy Problem List: Detail (1. Decreased endurance to complete ADLs safely 2. Biju UE weakness 3. Decreased ROM biju UE's 4. Decreased endurance to amb household distances.) Goals - Goals Occupational Therapy Goals: 1. Pt to amb household distances independently w/ AD if needed w/ no rest breaks. 2. Increase ROM Biju shlds. 3. Increased endurance to complete ADLs independently and safely. Prognosis - Prognosis Good Plan - Plan Occupational Therapy Plan: Feel patient would benefit from short term rehab or possibly home care to increase Biju UE strength, ROM, and endurance to complete ADLs independently and safely.
[2017-08-28] MEDS ORDERED: CEFTRIAXONE SODIUM 1 GM in 0.9% SODIUM CHLORIDE 50ML 50 ML IVPB SCH (22:00)
[2017-08-28] MEDS ORDERED: SIMVASTATIN 10MG TABLET PO SCH (22:00)
[2017-08-29] MEDS: IPRATROPIUM/ALBUTEROL (0.5MG/3MG) NEB INH SCH ×2 (06:14→10:26)
--- NOTE | 2017-08-29 09:11 | Physician Progress Note ---
Subjective - Date Date of Physician Progress Note: 08/29/17 - Subjective Subjective Comment: The patient is AOx 3 this morning. She says that she is coughing less and her breathing has improved. The patient says that she really wants to go home. Both of he daughters are at bedside. Severity scale (1-10): 4 Objective - Vital Signs Vital Signs: Vital Signs - Last 24 Hrs Temp Pulse Pulse Resp BP BP Pulse Ox 08/29/17 06:19 89 18 99 08/29/17 06:15 89 18 100 08/29/17 05:00 98.2 F 90 18 142/73 98 08/28/17 21:23 95 H 18 100 08/28/17 20:29 18 08/28/17 20:00 97.9 F 97 H 20 134/52 97 08/28/17 14:08 97.8 F 119/60 08/28/17 10:04 84 18 95 - General General Appearance: Alert, Oriented x3, Cooperative, Mild distress, Other Limitations: Altered mental status - Head Head exam: Atraumatic, Normocephalic, Normal inspection Head exam detail: negative: Abrasion, Contusion, Willard's sign, General tenderness, Hematoma, Laceration - Eye Eye exam: Normal appearance. negative: Conjunctival injection, Periorbital swelling, Periorbital tenderness, Scleral icterus - ENT Ear exam: negative: Auricular hematoma, Auricular trauma Nasal Exam: negative: Active bleeding, Discharge, Dried blood, Foreign body Mouth exam: negative: Drooling, Laceration, Muffled voice, Tongue elevation - Neck Neck exam: Normal inspection. negative: Meningismus, Tenderness - Respiratory Respiratory exam: Normal lung sounds bilaterally, Decreased breath sounds ( decreased breaths bilaterally ). negative: Rales, Respiratory distress, Stridor - Cardiovascular Cardiovascular Exam: Normal rhythm, Normal heart sounds, Tachycardia Peripheral Pulses: 1+: Radial (R), Radial (L) - GI/Abdominal GI/Abdominal exam: Soft. negative: Rebound, Rigid, Tenderness - Rectal Rectal exam: Deferred - exam: Deferred - Extremities Extremities exam: Normal inspection. negative: Pedal edema, Tenderness - Back Back exam: Denies: CVA tenderness (R), CVA tenderness (L) - Neurological Neurological exam: Alert, CN II-XII intact. negative: Motor sensory deficit - Skin Skin exam: Normal color. negative: Abrasion Type of lesion: negative: abrasion Assessment and Plan - Assessment and Plan (1) CAP (community acquired pneumonia) Plan: - CXR- no infiltrates/opacites, no acute process. - CURB 65 score - 2 (moderate severity), - to cont PO Levaquin daily and on discharge for another 5 days. - saturating 99% on 2 liters, chest PT Current Visit: Yes Status: Acute Qualifiers: Laterality: unspecified laterality Qualified Code(s): J18.9 - Pneumonia, unspecified organism Base Code: J18.9 - PNEUMONIA, UNSPECIFIED ORGANISM (2) COPD exacerbation Plan: - CXR - negative for infiltrates/opacities. - cont with duoneb Q4H scheduled, Albuterol Q2H PRN, - maintain sats > 92%, elevate head of bed 30 deg, check peak flow. Tele monitor on. - pulmonary rehab planning on d/c, repeat chest xray on next office visit in 2 weeks. - pneumo/flu vaccines up to date. Current Visit: No Status: Acute Base Code: J44.1 - CHRONIC OBSTRUCTIVE PULMONARY DISEASE W (ACUTE) EXACERBATION (3) Code status needs review Plan: We have not had any indication regarding code status. Current Visit: No Status: Acute Base Code: [id number] - (4) DVT prophylaxis Plan: Lovenox 40mg QD Current Visit: No Status: Acute Base Code: [id number] - Comment: 01/03/17: patient considered high risk with age and restricted mobility -lovenox 40mg sq daily for prophylaxis was given (5) Debility Plan: - pt has limited mobility due to COPD and chronic back issues. Family is concerned about home environment. - PT/OT evaluated patient yesterday. Reviewed notes which indicate LE weakness and limitation of ADLs due to chronic shortness of breath. Ideally I would want the patient to stay for further strengthening and conditioning but she is wanting to return home. I will discuss with JAKE regarding home PT/OT and nursing. Current Visit: Yes Status: Acute Base Code: R53.81 - OTHER MALAISE - Disposition Disposition: Patient's respiratory status has improved significantly over the past 24 hours. Her daughters had initially wanted her to be placed in a facility but the patient has refused. There was previous attempts for palliative/hospice services which were denied. I have indicated to the family that we are more than willing to have the patient stay in to complete PT/OT treatment but she is persistent in wanting to be at home. From a medical standpoint she is stable for d/c today. Pt to follow up with PCP within 2 weeks. Results - Labs Result Diagrams: 08/27/17 19:50 08/27/17 19:50 DVT/PE Assessment - Risk for VTE Risk for VTE: No Risk Level: Moderate Risk Assessment Date: 08/28/17 Risk Assessment Time: 09:00 VTE Orders Placed or Will Be Placed: Yes - Active Medicaitons Current Medications: Current Medications Acetaminophen (Tylenol 500mg Tab) 1,000 mg PO Q6H PRN PRN Reason: PAIN/TEMP Albuterol Sulfate () 2.5 mg INH RESP.Q2H PRN PRN Reason: DIFFICULTY IN BREATHING Albuterol/Ipratropium (Duoneb) 3 ml INH RESP.Q4H.[place] [facility] Last Admin: 08/29/17 06:14 Dose: 3 ml Aspirin (Aspirin Chewable) 81 mg PO DAILY [facility] Last Admin: 08/28/17 10:36 Dose: 81 mg Budesonide (Pulmicort) 0.5 mg INH BID [facility] Last Admin: 08/28/17 21:23 Dose: 0.5 mg Guaifenesin (Mucinex) 600 mg PO BID PRN PRN Reason: COUGH Simvastatin (Zocor) 10 mg PO QHS [facility] Last Admin: 08/28/17 21:18 Dose: 10 mg AMI Plan - Labs Result Diagrams: 08/27/17 19:50 08/27/17 19:50
--- NOTE | 2017-08-29 10:25 | Discharge Summary ---
Providers Discharge Summary Date: 08/29/17 Date of admission: 08/27/17 23:54 Attending physician: BRITTANEY RAMAN Primary care physician: ÁNGEL SANTOS Physical Exam - Vital Signs Vital Signs: Vital Signs - Last 24 Hrs Temp Pulse Pulse Resp BP BP Pulse Ox 08/29/17 06:19 89 18 99 08/29/17 06:15 89 18 100 08/29/17 05:00 98.2 F 90 18 142/73 98 08/28/17 21:23 95 H 18 100 08/28/17 20:29 18 08/28/17 20:00 97.9 F 97 H 20 134/52 97 08/28/17 14:08 97.8 F 119/60 - General General Appearance: Alert, Oriented x3, Cooperative, Mild distress, Other Limitations: Altered mental status - Head Head exam: Atraumatic, Normocephalic, Normal inspection Head exam detail: negative: Abrasion, Contusion, Willard's sign, General tenderness, Hematoma, Laceration - Eye Eye exam: Normal appearance. negative: Conjunctival injection, Periorbital swelling, Periorbital tenderness, Scleral icterus - ENT Ear exam: negative: Auricular hematoma, Auricular trauma Nasal Exam: negative: Active bleeding, Discharge, Dried blood, Foreign body Mouth exam: negative: Drooling, Laceration, Muffled voice, Tongue elevation - Neck Neck exam: Normal inspection. negative: Meningismus, Tenderness - Respiratory Respiratory exam: Normal lung sounds bilaterally, Decreased breath sounds ( decreased breaths bilaterally ). negative: Accessory muscle use, Rales, Respiratory distress, Stridor - Cardiovascular Cardiovascular Exam: Normal rhythm, Normal heart sounds, Tachycardia Peripheral Pulses: 1+: Radial (R), Radial (L) - GI/Abdominal GI/Abdominal exam: Soft. negative: Rebound, Rigid, Tenderness - Rectal Rectal exam: Deferred - exam: Deferred - Extremities Extremities exam: Normal inspection. negative: Pedal edema, Tenderness - Back Back exam: Denies: CVA tenderness (R), CVA tenderness (L) - Neurological Neurological exam: Alert, CN II-XII intact. negative: Motor sensory deficit - Skin Skin exam: Normal color. negative: Abrasion Type of lesion: negative: abrasion Hospitalization - Hospitalization Admission Diagnosis: Fever. Altered Mental Status. CAP - Problem List/Discharge Diagnosis (1) CAP (community acquired pneumonia) Plan: - CXR- no infiltrates/opacites, no acute process. - CURB 65 score - 2 (moderate severity), - to cont PO Levaquin daily and on discharge for another 5 days. - saturating 99% on 2 liters, chest PT daily Current Visit: Yes Status: Acute Discharge Diagnosis: Laterality: unspecified laterality Qualified Code(s): J18.9 - Pneumonia, unspecified organism Base Code: J18.9 - PNEUMONIA, UNSPECIFIED ORGANISM (2) COPD exacerbation Plan: - CXR - negative for infiltrates/opacities. - cont with duoneb Q4H scheduled, Albuterol Q2H PRN, - maintain sats > 92%, elevate head of bed 30 deg, check peak flow. Tele monitor on. - pulmonary rehab planning on d/c, repeat chest xray on next office visit in 2 weeks. - pneumo/flu vaccines up to date. Current Visit: No Status: Acute Base Code: J44.1 - CHRONIC OBSTRUCTIVE PULMONARY DISEASE W (ACUTE) EXACERBATION (3) Code status needs review Plan: We have not had any indication regarding code status. Current Visit: No Status: Acute Base Code: [id number] - (4) DVT prophylaxis Plan: Lovenox 40mg QD Current Visit: No Status: Acute Base Code: [id number] - Comment: 01/03/17: patient considered high risk with age and restricted mobility -lovenox 40mg sq daily for prophylaxis was given (5) Debility Plan: - pt has limited mobility due to COPD and chronic back issues. Family is concerned about home environment. - PT/OT evaluated patient yesterday. Reviewed notes which indicate LE weakness and limitation of ADLs due to chronic shortness of breath. Ideally I would want the patient to stay for further strengthening and conditioning but she is wanting to return home. I will discuss with SW regarding home PT/OT and nursing. Current Visit: Yes Status: Acute Base Code: R53.81 - OTHER MALAISE - Disposition Patient's respiratory status has improved significantly over the past 24 hours. Her daughters had initially wanted her to be placed in a facility but the patient has refused. There was previous attempts for palliative/hospice services which were denied. I have indicated to the family that we are more than willing to have the patient stay in to complete PT/OT treatment but she is persistent in wanting to be at home. From a medical standpoint she is stable for d/c today. Pt to follow up with PCP within 2 weeks. - Hospitalization Course Disposition: Home, Self-Care Hospital Course: Mrs. Garcia is an 82 y/o female with advanced stage COPD w/ brochilitis as described on CTA angio some time back, who presents with fever, productive cough and weakness. The patient has been on 6 weeks of Zithromax as prescribed by her PCP for her symptoms. Despite being on antibiotics and daily duoneb treatment at home the patient's respiratory became progressively worse. Within the last 2 weeks the patient traveled to [place] to see her son and on her return home she says that she felt ok. On the day prior to admission she was found at home by her daughter who noted that her mother was confused, weak and had worsening shortness of breath. She is on 2 liters oxygen at home but desaturated in the 80's. On arrival to the ED the patient was started on respiratory treatments, steroids and IV Zithromax/Rocephin. Labs were not suggestive of acute infection and chest xray did not show and infiltrates/opacities. The patient's antibiotics were changed to PO Levaquin daily with continued respiratory therapy and chest PT. OT/PT consult was placed for evaluation of the patient's gait and mobility. Initial assessment showed some functional limitation due to respiratory condition with recommendation for daily gait/strength training. The patient's respiratory status has markedly improved and she is saturating well on 2 liters nasal cannula oxygen. I also had an extensive discussion with the patient's daughters regarding code status and outpatient plan of care. There was initial intention to have the patient be assessed for placement upon discharge. However upon further discussion and assessment this morning the patient is keen to return home. Her daughters have assured me of their support in her home environment and ongoing treatment at home. Condition at Discharge: (2) Stable Discharge Medications - Discharge Medications Prescriptions: Levofloxacin [Levaquin] 750 mg PO DAILY 5 Days #5 tab Home Medications: Ambulatory Orders Albuterol Sulfate [Proair Hfa] 1 - 2 puff IH .EVERY 4-6 HOURS PRN #1 inhaler [Last Taken 05/01/17] Calcium Carbonate [Tums] 500 mg PO Q4H PRN #0 tab.chew 11/14/16 [Last Taken ] Ipratropium/Albuterol [Duoneb] 3 ml INH RESP.Q4H.WA #30 ampul.neb 01/03/17 [ Last Taken 05/31/17 0800] Aspirin 81 mg PO DAILY 05/04/17 [Last Taken 05/30/17] Albuterol Sulfate 0.083% [Neb] 2.5 mg INH RESP.Q2H PRN nebulization solution [Last Taken Unknown] Ipratropium/Albuterol [Duoneb] 3 ml INH RESP.Q4H.WA ampul.neb 08/29/17 [Last Taken Unknown] Levofloxacin [Levaquin] 750 mg PO DAILY 5 Days #5 tab 08/29/17 [Last Taken Unknown] Simvastatin [Zocor] 10 mg PO QHS tab 08/29/17 [Last Taken Unknown] Discharge Plan - Discharge Instructions Activity at Discharge: Wear Oxygen At All Times (2 liters ) Diet at Discharge: Regular Diet Quality Measures - Quality Measures Quality Measures: Advance Directives, Documentation of Current Medications in Medical Record, Elder Maltreatment Screen and Follow-Up Plan, Screening for High Blood Pressure and F/U Documented - Current Medications Quality Measure: Measure #130: Documentation of Current Medications Documentation of Current Medications: <Current Medications Documented/Reviewed> [V2005] - Blood Pressure Screening Quality Measure: Screening for High Blood Pressure and Follow-Up Documented Does Patient Have Any of the Following: No Blood Pressure Classification: Normal BP Reading Systolic Measurement: 119 Diastolic Measurement: 60 Screening for High Blood Pressure: < Normal BP, F/U Not Required > [R7653] - Advance Directives Quality Measure: Measure #47: Care Plan Advance Directives Established: Yes Advance Directives Information Provided To Patient: Already Provided Advance Directives on File: Yes (in dr campos office) Living Will: No Power of Sexton Helper: Yes Power of Sexton Helper Name: NICK TINSLEY Advance Care Planning: <Care Plan/Decision Maker Documented; Discussed & Documented> [7781F] - Elder Abuse Suspicion Index Screening: Elder Abuse Suspicion Index Screening Rely on people for bathing, dressing, shopping, banking, etc: Yes Prevented from getting food, clothes, medication, etc: No Made to feel shamed or threatened by someone: No Forced to sign papers or use money against will: No Feel afraid, touched in ways not wanted or hurt physically: No Poor eye contact, withdrawn, malnourished, cuts or bruises: No Screening Result: Negative result EASI Reference Information: Vero MURPHY, Lio James, Edd Chung, Edwige Moralez.Development and validation of a tool to assist physicians identification of elder abuse: The Elder Abuse Suspicion Index (EASI ). Journal of Elder Abuse and Neglect, 2008; 20 (3): 276-300. - Elder Maltreatment Screen Quality Measures: Elder Maltreatment Screen and Follow-Up Plan Elder Maltreatment Screen: <Negative, No Follow-Up Plan Required> [G8734]
[2017-08-29] MEDS: BUDESONIDE 0.5 MG/2 ML INH SCH (10:26)
[2017-08-29] MEDS: ASPIRIN 81 MG CHEWABLE TABLET PO SCH (11:32)
== END 2017-08-29 13:40 | disposition home or self-care (01) | DRG 192 ==
LOC: ER 19:56 → MEDSURG 23:54
PROVIDERS: ADMIT Internal Medicine; ATTEND Internal Medicine
DX: J18.9 Pneumonia, unspecified organism (principal); J44.1 Chronic obstructive pulmonary disease with (acute) exacerbation; E78.00 Pure hypercholesterolemia, unspecified; R53.81 Other malaise; Z85.51 Personal history of malignant neoplasm of bladder; Z87.891 Personal history of nicotine dependence; Z91.81 History of falling; I10 Essential (primary) hypertension; I71.4 Abdominal aortic aneurysm, without rupture
CPT/HCPCS: 71020; 80053; 81001; 83605; 84484; 85027; 93005; 93010; 93041; 94640; 94760; 94761; 96365; 96366; 97165; 99223; 99239; 99285; J0456; J7050

== ENCOUNTER 2017-11-03 18:31 | Emergency (ER) | payer MEDICARE ==
--- NOTE | 2017-11-03 19:00 | Emergency Department Record ---
History of Present Illness - General Chief Complaint: Shortness of breath Stated Complaint: LIZ/ELEVATED HEART RATE/HEADACHE Time Seen by Provider: 11/03/17 18:58 Source: Patient Mode of Arrival: Wheelchair Limitations: No limitations - History of Present Illness Initial Comments: 82 yo female presents to ED for evaluation of increased SOB this afternoon associated with transient confusion per family at the bedside. Family reports that the patient is on oxygen 2 L NC at baseline due to COPD, reports a history of dementia resulting in limited history. Family reports increased weakness today as well. MD Complaint: Shortness of breath Onset/Timin -: Hour(s) Severity: Moderate Consistency: Intermittent Improves With: Oxygen Worsens With: Nothing Known History Of: COPD Associated Symptoms: Cough, Other - Related Data Home Oxygen Therapy: Yes Home Oxygen Amount: 2 Liters Previous Rx's Medication Instructions Recorded Albuterol Sulfate [Proair Hfa] 1 - 2 puff IH .EVERY 4-6 HOURS PRN 11/14/16 #1 inhaler Ipratropium/Albuterol [Duoneb] 3 ml INH RESP.Q4H.WA ampul.neb 08/29/17 Doxycycline Hyclate [Doxycycline] 100 mg PO BID #18 cap 11/03/17 Allergies Allergy/AdvReac Type Severity Reaction Status Date / Time lisinopril Allergy Unknown CONGESTION Unverified 09/09/17 16:35 Travel Screening - Travel/Exposure Within Last 30 Days Have you traveled within the last 30 days?: No Review of Systems Constitutional: Denies: Chills, Fever, Malaise, Night sweats Eyes: Denies: Eye discharge, Eye pain ENT: Denies: Congestion, Ear pain, Epistaxis Respiratory: Reports: Cough, Dyspnea Cardiovascular: Denies: Chest pain, Dyspnea on exertion, Edema Endocrine: Reports: Fatigue. Denies: Heat or cold intolerance Gastrointestinal: Denies: Abdominal pain, Vomiting Genitourinary: Denies: Incontinence, Retention Musculoskeletal: Denies: Arthralgia, Back pain Skin: Denies: Bruising, Change in color Neurological: Reports: Confusion, Headache. Denies: Abnormal gait, Seizure Psychiatric: Denies: Anxiety Hematological/Lymphatic: Denies: Anemia, Blood Clots Past Medical History - SOCIAL HISTORY Smoking Status: Former smoker Alcohol Use: None Drug Use: None - RESPIRATORY Hx Respiratory Disorders: Yes Hx COPD: Yes Hx Dyspnea: Yes Hx Pneumonia: Yes Hx Sleep Apnea: Yes (narcolepsy) - CARDIOVASCULAR Hx Cardio Disorders: Yes Hx Hypertension: Yes Comment:: hypercholesteremia, AAA - NEURO Hx Neuro Disorders: No Comment:: "memory issues" per daughter - GI Hx GI Disorders: Yes Hx Reflux: Yes Comment:: abdominal aneurysm - Hx Genitourinary Disorders: Yes Hx Bladder Problem: Yes (cancer) - ENDOCRINE Hx Endocrine Disorders: No Hx Diabetes: No Hx Thyroid Disease: No - MUSCULOSKELETAL Hx Musculoskeletal Disorders: Yes Hx Arthritis: Yes Comment:: hx fracture wrist - PSYCH Hx Psych Problems: No - HEMATOLOGY/ONCOLOGY Hx Hematology/Oncology Disorders: Yes Hx Cancer: Yes (bladder 2010 approx) Hx Blood Transfusions: Yes Hx Blood Transfusion Reaction: No Family Medical History Any Significant Family History?: Yes Hx Cancer: Mother, Children, Brother/Sister Hx Resp Disorders: Children Physical Exam - General General Appearance: Alert, Cooperative, No acute distress Limitations: No limitations - Head Head exam: Atraumatic, Normocephalic, Normal inspection Head exam detail: negative: Abrasion, Contusion, Willard's sign, General tenderness, Hematoma, Laceration - Eye Eye exam: Normal appearance. negative: Conjunctival injection, Periorbital swelling, Periorbital tenderness, Scleral icterus - ENT Ear exam: negative: Auricular hematoma, Auricular trauma Nasal Exam: negative: Active bleeding, Discharge, Dried blood, Foreign body Mouth exam: negative: Drooling, Laceration, Muffled voice, Tongue elevation - Neck Neck exam: Normal inspection. negative: Meningismus, Tenderness - Respiratory Respiratory exam: Decreased breath sounds. negative: Rales, Respiratory distress, Rhonchi, Stridor - Cardiovascular Cardiovascular Exam: Regular rate, Normal rhythm, Normal heart sounds - GI/Abdominal GI/Abdominal exam: Soft. negative: Rebound, Rigid, Tenderness - Rectal Rectal exam: Deferred - exam: Deferred - Extremities Extremities exam: Normal inspection. negative: Calf tenderness, Pedal edema, Tenderness - Back Back exam: Denies: CVA tenderness (R), CVA tenderness (L) - Neurological Neurological exam: Alert, Normal gait, Oriented X3 - Psychiatric Psychiatric exam: Normal affect, Normal mood - Skin Skin exam: Normal color. negative: Abrasion Type of lesion: negative: abrasion Course Vital Signs 11/03/17 18:45 Temperature 97.5 F L Pulse Rate 104 H Respiratory 22 Rate Blood Pressure 117/86 Pulse Ox 97 - Reevaluation(s) Reevaluation #1: 11/03/17 18:59 EKG: Sinus tachycardia 100 Normal axis, normal intervals Biphasic T waves V2, V3 new from previous 08/27/17 patient seen and examined, denies chest pain or discomfort symptoms on examination. Will obtain laboratory studies, CXR, urinalysis, and reassess. Reevaluation #2: 11/03/17 19:21 Labs reviewed, Hgb 9.8, BUN 26/Creatinine 1.4. INR 1.2. [facility] contacted for transfer for surgical evaluation. Reevaluation #3: 11/03/17 19:52 Labs reviewed, Hgb 10.9, Troponin 0.106. ASA given PO, patient is chest pain- free. CXR: Bi-apical lung consolidations similar to previous, COPD. Reevaluation #4: 11/03/17 20:28 Patient and her daughter/grand-daughter were updated on all results as well as recommendation to transfer the patient for further cardiac evaluation. After a long discussion, the patient has decided that she wants to go home and not be hospitalized or transferred. I discussed the high risk of possible , worsening of her symptoms, and missed heart attack among other risks of leaving the hospital vs. the benefit of further cardiac and respiratory evaluation. Patient understands these risks and wants to go home with family. Patient reports that she is a DNR, and both her daughter and grand-daughter are in agreement with the plan to release the patient to go home. Patient is alert, oriented, and answers all questions appropriately on examination, appears to have the capacity to make rational decisions. Will treat for possible pneumonia with Doxycycline as directed. Patient and family were encouraged to return to ED immediately for re-evaluation if her symptoms worsen or if she changes her mind and would like to be re-evaluated. Medical Decision Making - Lab Data Result diagrams: 11/03/17 18:45 11/03/17 18:45 Disposition Disposition: Discharge Clinical Impression: Elevated troponin I level Dyspnea Qualifiers: Dyspnea type: unspecified Qualified Code(s): R06.00 - Dyspnea, unspecified URI (upper respiratory infection) Qualifiers: URI type: unspecified URI Qualified Code(s): J06.9 - Acute upper respiratory infection, unspecified Disposition: Against Medical Advice Condition: (2) Stable Instructions: COPD (Chronic Obstructive Pulmonary Disease) (ED) Additional Instructions: Return to ED if your symptoms worsen or if you have any concerns. Follow-up with your family doctor in 1-3 days as directed. Doxycycline as directed. Prescriptions: Doxycycline Hyclate [Doxycycline] 100 mg PO BID #18 cap Forms: Patient Portal Access Time of Disposition: 20:28 Quality - Quality Measures Quality Measures: N/A - Blood Pressure Screening Does Patient Have Any of the Following: No Blood Pressure Classification: Pre-Hypertensive BP Reading Systolic Measurement: 117 Diastolic Measurement: 86 Screening for High Blood Pressure: < Pre-Hypertensive BP, F/U Documented > [ G8950] Pre-Hypertensive Follow-up Interventions: Referral to alternative/primary care provider.
[2017-11-03 19:15] LABS: BASO % 0.4 % (0-6); EOS % 5.4 % (0-6); GRAN % 77.8 % (47-80); HEMATOCRIT 34.2 % (35.0-47.0); HEMOGLOBIN 10.9 gm/dl (11.6-16.0); LYMPH % 11.7 % (16-45); MEAN CELL VOLUME 84.4 fl (81-97); MEAN CORPUSCULAR HEMOGLOBIN 26.9 pg (27-33); MEAN CORPUSCULAR HGB CONC 31.9 g/dl (32-36); MEAN PLATELET VOLUME 10.7 fl (7.4-10.4); MONO % 4.7 % (0-9); PLATELET COUNT 193 K/uL (130-400); RED BLOOD COUNT 4.05 M/uL (3.80-5.40); RED CELL DISTRIBUTION WIDTH 14.5 % (11.5-14.5); WHITE BLOOD COUNT W/O DIFF 7.6 K/uL (4.2-12.2)
[2017-11-03 19:31] LABS: BLOOD UREA NITROGEN 10 mg/dL (8-23); CREATININE 0.8 mg/dL (0.5-0.9); EST GLOMERULAR FILTRATION RATE > 60 mL/min
[2017-11-03 19:32] LABS: TOTAL PROTEIN 7.3 g/dL (6.6-8.7)
[2017-11-03 19:34] LABS: GLUCOSE,RANDOM 128 mg/dL (74-109)
[2017-11-03 19:37] LABS: ALB/GLOB RATIO 1.1 (1.1-1.8); ALBUMIN 3.9 g/dL (4.0-5.0); ALKALINE PHOSPHATASE 77 U/L (35-104); ALT/SGPT 8 U/L (<33); AST/SGOT 17 U/L (10.0-35.0)
[2017-11-03] MEDS ORDERED: ASPIRIN 81 MG CHEWABLE TABLET PO ONE (19:42)
[2017-11-03] MEDS ORDERED: DOXYCYCLINE HYCLATE 100 MG CAPSULE PO ONE (20:34)
[2017-11-03] MEDS ORDERED: DOXYCYCLINE HYCLATE 100 MG CAPSULE PO SCH (22:00)
--- NOTE | 2017-11-04 22:24 | RADIOLOGY REPORT ---
EXAM: CHEST 2 VIEWS HISTORY: COUGH. TECHNIQUE: Frontal and lateral views of the chest. COMPARISON: 09/09/17 chest. FINDINGS: The heart size is normal. There are upper lobe and perihilar interstitial interspace opacities. Similar findings were present previously. Underlying COPD. Osteopenia. No pneumothorax. Biapical pleural thickening. IMPRESSION: MIXED INTERSTITIAL INTERSPACE OPACITIES BILATERALLY WITH UNDERLYING COPD. SIMILAR FINDINGS WERE PRESENT PREVIOUSLY. JOB NUMBER: [id number] MTDD
== END 2017-11-03 21:33 | disposition left against medical advice (07) ==
LOC: ER 18:31
DX: R79.89 Other specified abnormal findings of blood chemistry (principal); R06.00 Dyspnea, unspecified; J06.9 Acute upper respiratory infection, unspecified; R51 Headache; R41.0 Disorientation, unspecified; J44.9 Chronic obstructive pulmonary disease, unspecified; F03.90 Unspecified dementia, unspecified severity, without behavioral disturbance, psychotic disturbance, mood disturbance, and anxiety; I10 Essential (primary) hypertension; Z99.81 Dependence on supplemental oxygen; Z87.891 Personal history of nicotine dependence
CPT/HCPCS: 71046; 80053; 84484; 85025; 93005; 93010; 99284

== ENCOUNTER 2018-04-15 23:08 | Emergency (ER) | payer MEDICARE ==
[2018-04-15] MEDS ORDERED: IPRATROPIUM/ALBUTEROL (0.5MG/3MG) NEB INH ONE (23:16)
--- NOTE | 2018-04-15 23:27 | Emergency Department Record ---
History of Present Illness - General Chief Complaint: Altered Mental Status Stated Complaint: ALTERED LOC Time Seen by Provider: 04/15/18 23:15 Source: Patient Mode of Arrival: Ambulatory Limitations: No limitations - History of Present Illness Initial Comments: 82 yo female presents with acute distress, dyspnea, and confusion. Her granddaughter states she woke calling for help. She went ot bed at 7pm uneventfully. She woke just prior to arrival. She is mumbling, short of breath and asking for help. Per family she is full code. She has a history of COPD and and abdominal aneurysm per family in the ED. She had a recent UTI that was treated. MD Complaint: Altered mental status -: Hour(s) Severity: Severe Consistency: Constant Context: COPD Associated Symptoms: Denies other symptoms - [place] Coma Scale Eye Response: (4) Open spontaneously Motor Response: (6) Obeys commands Verbal Response: (5) Oriented [place] Total: 15 - Related Data Previous Rx's Medication Instructions Recorded Albuterol Sulfate [Proair Hfa] 1 - 2 puff IH .EVERY 4-6 HOURS PRN 11/14/16 #1 inhaler Allergies Allergy/AdvReac Type Severity Reaction Status Date / Time lisinopril Allergy Unknown CONGESTION Unverified 03/31/18 16:43 Review of Systems ROS unobtainable: Due to mental status Past Medical History - SOCIAL HISTORY Smoking Status: Former smoker Drug Use: None - RESPIRATORY Hx Respiratory Disorders: Yes Hx COPD: Yes Hx Dyspnea: Yes Hx Pneumonia: Yes Hx Sleep Apnea: Yes (narcolepsy) - CARDIOVASCULAR Hx Cardio Disorders: Yes Hx Hypertension: Yes Comment:: hypercholesteremia, AAA - NEURO Hx Neuro Disorders: No Comment:: "memory issues" per daughter - GI Hx GI Disorders: Yes Hx Reflux: Yes Comment:: abdominal aneurysm - Hx Genitourinary Disorders: Yes Hx Bladder Problem: Yes (cancer) - ENDOCRINE Hx Endocrine Disorders: No Hx Diabetes: No Hx Thyroid Disease: No - MUSCULOSKELETAL Hx Musculoskeletal Disorders: Yes Hx Arthritis: Yes Comment:: hx fracture wrist - PSYCH Hx Psych Problems: No - HEMATOLOGY/ONCOLOGY Hx Hematology/Oncology Disorders: Yes Hx Cancer: Yes (bladder 2009 approx) Hx Blood Transfusions: Yes Hx Blood Transfusion Reaction: No Family Medical History Hx Cancer: Mother, Children, Brother/Sister Hx Resp Disorders: Children Physical Exam - General General Appearance: Alert, Moderate distress, Anxious Limitations: Altered mental status - Head Head exam: Normocephalic, Normal inspection - Eye Eye exam: Normal appearance. negative: Conjunctival injection, Scleral icterus - ENT ENT exam: Normal exam, Mucous membranes dry Ear exam: Normal external inspection Nasal Exam: Normal inspection Mouth exam: Normal external inspection - Neck Neck exam: Normal inspection - Respiratory Respiratory exam: Accessory muscle use, Prolonged expiratory, Respiratory distress, Rhonchi. negative: Normal lung sounds bilaterally - Cardiovascular Cardiovascular Exam: Irregular rhythm, Tachycardia - GI/Abdominal GI/Abdominal exam: Soft. negative: Tenderness - Rectal Rectal exam: Deferred - exam: Deferred - Extremities Extremities exam: Normal inspection, Full ROM, Normal capillary refill. negative: Tenderness - Back Back exam: Reports: Normal inspection, Full ROM. Denies: Muscle spasm, Rash noted, Tenderness - Neurological Neurological exam: Altered - Psychiatric Psychiatric exam: Agitated, Anxious - Skin Skin exam: Diaphoretic, Intact, Normal color, Warm Course - Reevaluation(s) Reevaluation #1: On arrival on her baseline oxygen usage she is tachycardic with oxygen saturations in the low to mid 80's Doneb was started on arrival She is very hypertensive on arrival ABG performed EKG 04/15/18 04/15/18 23:34 EKG Atrial tachycardia, rate 126 Qtc 468, axis normal, NS inferior ST changes. I SW granddaughters in the ED and her daughter who is in [place]. She states in the short term her mother is FULL CODE including intubation, defibrillation and CPR. If it becomes clear at some point this is terminal then withdrawal of care plans could be made. Given the sudden symptoms tonight the patient remains FULL CODE. Per family the patient is full code. BIpap and nitro dipr initiated given possible hypertensive urgency with BP greater that 200/ I discussed the critical nature of her presentation she may need immediate full support. Her daughter states she is full code. 04/15/18 23:47 The patient did not respond to duoneb with oxygen levels remaining in the mid 80 's I recommended intubation at this time Procedure The patient was intubated 7.5mm ETT tube Single attempt Cords visualized + ETT confirmed with color change and bilateral breath sounds Oxygen levels immediately improved from mid 80's to 97% 04/15/18 23:52 ABG demonstrates pH 7.10, PCO2 77, PO2 101 Troponin is 0.031 04/16/18 00:05 Repeat EKG Junctional tachycardia, rate 122, intervals Qtc 569, axis normal, ST no acute changes. The patient is tolerating the vent 04/16/18 00:38 The UA is negative The ETT tube was advanced 2cm after reviewed of CXR HR now improved to 98. 04/16/18 00:51 Awaiting final bed placement at [facility] with admission to the service of Dr Pinto 04/16/18 01:06 BP 122/84 The patient is starting to move and resist the tube and vent She will be dosed at transport with rocuronium and continue versed drip to ensure she does not fight the vent in transport Patient is in critical condition but stable at time of transfer Medical Decision Making - Lab Data Result diagrams: 04/15/18 23:19 04/15/18 23:19 Disposition Disposition: Transfer Clinical Impression: Acute respiratory failure Disposition: Acute Care Hospital Transfer Transfer To: [facility] Reason For Transfer: Intubated Accepting Physician: Blair Time Discussed w/Accepting Physician: 00:09 Condition: (1) Good Forms: Patient Portal Access Time of Disposition: 00:09 Quality - Quality Measures Quality Measures: N/A - Blood Pressure Screening Does Patient Have Any of the Following: Active Dx of HTN Blood Pressure Classification: Hypertensive Reading Systolic Measurement: 200 Diastolic Measurement: 109 Screening for High Blood Pressure: Patient Exclusion, Hx of HTN [G9744]
[2018-04-15 23:28] LABS: HEMATOCRIT 38.1 % (35.0-47.0); HEMOGLOBIN 12.1 gm/dl (11.6-16.0); MEAN CELL VOLUME 84.7 fl (81-97); MEAN CORPUSCULAR HEMOGLOBIN 26.9 pg (27-33); MEAN CORPUSCULAR HGB CONC 31.8 g/dl (32-36); MEAN PLATELET VOLUME 10.7 fl (7.4-10.4); PLATELET COUNT 244 K/uL (130-400); RED CELL DISTRIBUTION WIDTH 15.3 % (11.5-14.5); WHITE BLOOD COUNT W/O DIFF 15.5 K/uL (4.2-12.2)
[2018-04-15 23:41] LABS: BLOOD UREA NITROGEN 12 mg/dL (8-23); CREATININE 0.8 mg/dL (0.5-0.9); EST GLOMERULAR FILTRATION RATE > 60 mL/min
[2018-04-15 23:42] LABS: TOTAL PROTEIN 7.4 g/dL (6.6-8.7)
[2018-04-15 23:43] LABS: ARTERIAL BLD GAS O2 SATURATION 94.1 % (95-98); ARTERIAL BLOOD GAS BASE EXCESS -7.6 mmol/L (-2 - 3); ARTERIAL BLOOD GAS HCO3 23.2 mmol/L (18-23); METHEMOGLOBIN 1.5 % (0.0-1.5); O2 HEMOGLOBIN 92.7 % vol (94-99); TOTAL HEMOGLOBIN 11.8 g/dl (11.6-16)
[2018-04-15] MEDS ORDERED: ETOMIDATE 20MG/10ML VIAL IVP ONE (23:43)
[2018-04-15 23:44] LABS: GLUCOSE,RANDOM 205 mg/dL (74-109)
[2018-04-15] MEDS ORDERED: ROCURONIUM BROMIDE 50MG/5ML VIAL IV ONE (23:44)
[2018-04-15] MEDS ORDERED: NITROGLYCERIN/D5W 50 MG/250 ML ML IV SCH (23:45)
[2018-04-15] MEDS ORDERED: MIDAZOLAM HCL 50 MG in 0.9 % SODIUM CHLORIDE 100ML 100 ML IVPB SCH (23:45)
[2018-04-15 23:46] LABS: ALB/GLOB RATIO 1.2 (1.1-1.8); ALBUMIN 4.1 g/dL (4.0-5.0); ALKALINE PHOSPHATASE 78 U/L (35-104); ALT/SGPT 8 U/L (<33); AST/SGOT 19 U/L (10.0-35.0); CREATINE PHOSPHOKINASE 85 U/L (26-192)
[2018-04-15 23:47] LABS: ARTERIAL BLOOD GAS PCO2 77.5 mmHg (35-48); CARBOXYHEMOGLOBIN 0.1 % (0-1.5)
[2018-04-15 23:48] LABS: ALLEN TEST NOT DONE
[2018-04-15 23:49] LABS: CKMB 3.4 ng/mL (<3.77)
[2018-04-16] MEDS ORDERED: SODIUM CHLORIDE 0.9% 500 ML IV ONE (00:11)
[2018-04-16 00:27] LABS: URINE APPEARANCE CLEAR; URINE BILIRUBIN NEGATIVE (NEGATIVE); URINE BLOOD NEGATIVE (NEGATIVE); URINE COLOR YELLOW; URINE GLUCOSE (UA) NEGATIVE (NEGATIVE); URINE KETONE NEGATIVE (NEGATIVE); URINE LEUKOCYTE ESTERASE NEGATIVE (NEGATIVE); URINE NITRITE NEGATIVE (NEGATIVE); URINE UROBILINOGEN 0.2 E.U./dL (0.20 - 1.00)
[2018-04-16] MEDS ORDERED: 0.9 % SODIUM CHLORIDE 1,000 ML BAG IV ONE (00:36)
[2018-04-16 00:37] LABS: URINE BACTERIA NONE SEEN; URINE RBC 0 - 2 (NONE SEEN); URINE SQUAMOUS EPITHELIAL CELL 0 - 2 /hpf; URINE WBC 0 - 2 (0-2/hpf)
[2018-04-16] MEDS ORDERED: ROCURONIUM BROMIDE 50MG/5ML VIAL IV ONE (01:09)
--- NOTE | 2018-04-17 11:06 | RADIOLOGY REPORT ---
DATE: 04/16/2018. EXAM: PORTABLE SEMI-ERECT, CHEST. HISTORY: Difficulty breathing. TECHNIQUE: Portable semi-erect chest. COMPARISON: 11/03/2017 chest x-ray. FINDINGS: The heart size is normal. Endotracheal and enteric tubes are in place. Limited due to patient positioning. The right lung apex was not included on the examination. Underlying chronic obstructive pulmonary disease. Chronic-appearing interstitial change bilaterally. No definitive pneumothorax. IMPRESSION: SUBOPTIMAL EXAMINATION DUE TO PATIENT POSITIONING. ENDOTRACHEAL TUBE AND ENTERIC TUBES ARE IN PLACE. CHRONIC OBSTRUCTIVE PULMONARY DISEASE WITH CHRONIC INTERSTITIAL CHANGE. JOB NUMBER: [id number] MTDD
== END 2018-04-16 01:30 | disposition short-term general hospital (02) ==
LOC: ER 23:08
DX: J96.00 Acute respiratory failure, unspecified whether with hypoxia or hypercapnia (principal); J44.9 Chronic obstructive pulmonary disease, unspecified; I10 Essential (primary) hypertension; I71.4 Abdominal aortic aneurysm, without rupture; Z87.891 Personal history of nicotine dependence
CPT/HCPCS: 31500; 36600; 71045; 80053; 81001; 82375; 82550; 82553; 82803; 83605; 84484; 85027; 93005; 93010; 94002; 94640; 96365; 96366; 96368; 96375; 99291; 99292; J7030